=== PATIENT | male | born 1970 | race Caucasian/White ===

== ENCOUNTER 2019-12-21 13:41 | Outpatient (CLI) | payer OTHER, SELFPAY ==
--- NOTE | ~2019-12-21 | CT_ITS ---
EXAMINATION: CT chest abdomen wo con EXAM DATE: 12/21/2019 14:21 INDICATION: Epigastric pain, shortness of breath, right upper quadrant pain. TECHNIQUE: Spiral CT of the chest and abdomen was performed without contrast. Axial, coronal and sa gittal images were reviewed. Coronal maximum intensity pixel images of chest reviewed. The dose-avis gth product (DLP) for this examination was 651.31 mGy-cm. The exposure was tailored according to pat ient size (auto mA exposure control), and iterative reconstruction (ASIR) was used as additional dose reduction technique. There is no prior study for comparison. FINDINGS: CHEST: Pleural-based right lower lobe nodule measuring 3 mm in thickness by 6 mm in diameter. Some s cattered other smaller bilateral noncalcified pulmonary nodules. These appear unchanged compared to p rior study, likely postinfectious granulomas. There are no pleural or pericardial effusions. Trach eobronchial tree is patent. There is no mediastinal, hilar or axillary lymphadenopathy. There is no pneumothorax. Heart normal in size. There is minimal coronary arterial calcification, arterial sclerosis. ABDOMEN: The liver, spleen, adrenal glands and pancreas are unremarkable. Gallbladder is unremarkabl e. No biliary obstruction. There is no nephrolithiasis or hydronephrosis. There is no retroperit martinez lymphadenopathy. The appendix is normal. The stomach and small bowel are unremarkable. There is expected amount of colonic stool. No free intraperitoneal gas. There are no osteoblastic or o steolytic lesions identified. IMPRESSION: 1. No acute chest or abdomen findings. 2. Small noncalcified pulmonary granulomas unchanged. Reviewed, dictated and finalized at location B. TS NUTRITIONIST
== END 2019-12-21 13:42 | disposition home or self-care (01) ==
PROVIDERS: PCP Family Medicine; Visit Provider Family Medicine
DX: R91.8 Other nonspecific abnormal finding of lung field (principal); R10.13 Epigastric pain
CPT/HCPCS: 71250; 74150

== ENCOUNTER 2020-07-31 14:40 | Outpatient (CLI) | payer OTHER, SELFPAY ==
--- NOTE | 2020-08-06 15:59 | WPDPFTINT ---
PFT Interpretation PFT Interpretation: DOS: 07/31/2020 REQUESTING: Dr Wilson REASON FOR TESTING: asthma, shortness of breath PULMONARY FUNCTION TESTS Results are reliable. Spirometry: FEV1 is 74%, mildly decreased. FVC 76%, mildly decreased. Normal FEV1%. DEcreased [id number]% at 54% predicted. After bronchodilator there is a 17% increase in small airways flows. Lung volumes: TLC 84$, normal. RV 88%, normal. Incrased airway resistance. Diffusion: DLCO 81%, normal. Flow volume loop: Normal. IMPRESSION: Mild obstructive ventilatory impairment, more significant in the small airways, without response to bronchodilator. This pattern can be seen in asthma. Nguyen Wilson MD
== END 2020-07-31 14:41 | disposition home or self-care (01) ==
PROVIDERS: PCP Family Medicine; Visit Provider Internal Medicine Critical Care Medicine
DX: J45.909 Unspecified asthma, uncomplicated (principal)
CPT/HCPCS: 94060; 94726; 94729

== ENCOUNTER 2020-08-11 08:28 | Outpatient (CLI) | payer OTHER, SELFPAY ==
--- NOTE | 2020-08-31 21:51 | SLEEP_ITS ---
HOME SLEEP TEST DATE OF STUDY: 08/11/2020 ORDERING PHYSICIAN: Nguyen Wilson MD. REASON FOR STUDY: Restless sleep, headache, excessive daytime sleepiness. HISTORY: This patient is a 49-year-old man, 5 feet 8 inches tall, weighing 200 pounds with a body mass index of 30.4. He has a history of obstructive sleep apnea syndrome with his last CPAP titration on 01/02/2014, with an optimal pressure of 11 cm. He returns at this time with complaints of an increase in symptoms. He wakes up throughout the night and has excessive daytime sleepiness. He frequently awakens from sleep feeling short of breath, occasionally awakens with heartburn, belching, or coughing, frequently has snoring that is loud enough to bother others. He rarely has trouble sleeping with a cold. He occasionally wakes up gasping for breath during the night, occasionally has breathing problems reported to him by others. He does not sweat excessively at night. He occasionally notices his heart pounding or beating irregularly at night. 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 He does not fall asleep involuntarily or while driving. He does not have loss of muscle tone with strong emotion. He occasionally has daytime difficulties due to excessive sleepiness. He is not paralyzed on waking or falling asleep. Rarely has vivid dreamlike scenes upon awakening or falling asleep. He is never afraid to go to sleep. He rarely has nightmares. Frequently, remembers his dreams and frequently has racing thoughts. He constantly has anxiety. He frequently has muscular tension, frequently notices parts of his body jerking, constantly kicks at night and frequently has crawly achy feelings in his legs at night. He occasionally has leg pain at night. He rarely has morning jaw pain, occasionally grinds his teeth during sleep. He rarely is bothered by pain during the day or awakened by pain at night, rarely wakes up feeling stiff in the morning with sore achy muscles or pain in the neck and spine. He has headaches, fatigue, and takes antacids regularly. Bedtime is 10:30 p.m., falling asleep within 15 minutes, waking 4-6 times at night for 45 minutes. During this time, he will toss and turn. He does not take naps. A short nap is not refreshing. He is usually drowsy in the morning for 3 hours or longer. MEDICATIONS: Buspirone, Xanax, Singulair, Symbicort, lansoprazole. MEDICAL COMORBIDITIES: Include anxiety, obstructive sleep apnea syndrome, asthma, anxiety, depression, hyperlipidemia, restless legs syndrome. HABITS: Former smoker. No current alcohol. He has a 16 ounce caffeinated beverage a day. DESCRIPTION OF STUDY: On the [place] Sleepiness Scale, his score is 10. This was conducted as an unattended type 3 portable home sleep test using 4 channel monitoring including respiratory effort channel, snoring channel, oxygen saturation channel, and heart rate channel. The study was scored using [facility] guidelines. His apnea-hypopnea index is 15, had 17 apneas, the majority or 71% of the apneas, 12 apneas were obstructive, 24% or 4 apneas were centrals and 6% of the apneas, 1 apnea was mixed. He had 80 hypopneas, 119 snoring events and desaturated 93 times, spending 1 minute below 88% saturation. His lowest saturation was 86%. Oxygen desaturation index is 12.1. Heart rate ranged from 51 to 100. IMPRESSION: This study shows evidence of at least moderate obstructive sleep apnea syndrome at G47.33 with an apnea-hypopnea index of 15, minimum desaturation to 86% and 119 snoring episodes. Duration of this overnight study was 6 hours 30 minutes. The patient has medical comorbidities including hypertension and anxiety. He should be treated with auto PAP with pressures between 5
== END 2020-08-11 08:29 | disposition home or self-care (01) ==
LOC: ANHCSM 08:28
PROVIDERS: PCP Family Medicine; Visit Provider Internal Medicine Critical Care Medicine
DX: G47.33 Obstructive sleep apnea (adult) (pediatric) (principal); Z99.89 Dependence on other enabling machines and devices
CPT/HCPCS: 95806

== ENCOUNTER 2021-02-03 11:32 | Observation (INO) | payer OTHER, SELFPAY ==
[2021-02-03] VITALS (15 sets, daily range): BP systolic 121–155; BP diastolic 76–93; PULSE 69–94; RESP 14–20; TEMP 36.3–36.9; O2SAT 97–99; BMI 30.2
--- NOTE | ~2021-02-03 | XR_ITS ---
EXAMINATION: XR chest 2V EXAM DATE: 02/03/2021 12:06 INDICATION: Midline chest pain, felt pop and tingling in arm. TECHNIQUE: Frontal and lateral projections of the chest obtained and reviewed. Comparison is made to prior examination from 12/07/2019. FINDINGS: The lungs are clear. There are no pleural effusions. The cardiomediastinal silhouette is within normal limits. There is no pneumothorax suspected. The bones and soft tissues are unremarkab le. IMPRESSION: Unremarkable chest x-ray exam. Reviewed, dictated and finalized at location A.
--- NOTE | 2021-02-03 11:40 | ECG_ITS ---
Measurements Intervals [address] Rate: 92 P: 24 AK: 136 QRS: -33 QRSD: 89 T: 14 QT: 332 QTc: 412 Interpretive Statements SINUS RHYTHM LEFT AXIS DEVIATION DELAYED PRECORDIAL R/S TRANSITION BASELINE ARTIFACT- II, III, AVF BORDERLINE ECG Electronically Signed On 02-03-2021 15:21:32 CDT by Tony Maldonado D.O.
[2021-02-03 11:53] LABS: Basophils Absolute Auto 0.1 K/mm3 (0.0-0.1); Basophils Percent Auto 0.7 % (0.2-1.2); Eosinophils Absolute Auto 0.5 K/mm3 (0-0.3); Eosinophils Percent Auto 6.8 % (0-4.4); Hematocrit 47.6 % (42.0-52.0); Hemoglobin 16.4 g/dL (14.0-18.0); Immature Granulocyte Absolute 0.04 K/mm3 (0.00-0.031); Immature Granulocyte Percent A 0.5 % (0-0.5); Lymphocytes Absolute Auto 2.91 K/mm3 (0.9-3.2); Lymphocytes Percent Auto 39.5 % (18.3-44.2); Mean Corpuscular HGB Conc 34.5 g/dl (32-36); Mean Corpuscular Hemoglobin 31.2 pg (26-34); Mean Corpuscular Volume 90.5 fl (80-100); Mean Platelet Volume 8.9 fl (7.4-10.4); Monocytes Absolute Auto 0.6 K/mm3 (0.1-0.6); Monocytes Percent Auto 8.4 % (2.6-8.5); Neutrophils Absolute Auto 3.2 K/mm3 (1.3-6.7); Neutrophils Percent Auto 44.1 % (45.5-73.1); Platelet Count Result 215 k/mm3 (150-375); Red Blood Count 5.26 M/mm3 (4.6-6.20); Red Cell Distribution Width 12.6 % (11.5-14.5); White Blood Count 7.4 K/mm3 (4.5-10.0)
[2021-02-03] MEDS: ASPIRIN 81 MG CHEWABLE TABLET 324 MG PO (12:01)
[2021-02-03 12:04] LABS: Anion Gap 5 mmol/L (8-16); Blood Urea Nitrogen 11 mg/dL (9-20); Calcium 9.2 mg/dL (8.4-10.2); Carbon Dioxide 29 mmol/L (22-30); Chloride 105 mmol/L (98-107); Estimated CRCL calculation 83 ml/min; Estimated Glomerular Filt Rate > 60; Glucose 147 mg/dL (75-110); INR 0.9; Prothrombin Time 12.8 Seconds (11.1-14.7); Sodium 139 mmol/L (137-145)
[2021-02-03 12:05] LABS: Partial Thromboplastin Time 23.5 SECONDS (22.3-36.8)
[2021-02-03 12:15] LABS: Troponin I < 0.012 ng/mL (0.000-0.034)
[2021-02-03 12:29] LABS: D Dimer 0.27 ug/mL (<0.48)
--- NOTE | 2021-02-03 13:09 | ED.GENADULT ---
HPI - General Adult General Chief complaint: Chest Pain Stated complaint: chest pain Time Seen by Provider: 02/03/21 11:39 Source: patient History of Present Illness HPI narrative: Patient is a 50 y/o male complaining of mid sternal chest pain starting 1 hour ago. He describes his pain as burning and rates it as 10/10. He states that his pain radiates throughout his body. He also had some tingling in his hands. He states that he is supposed to have a stress test in the near future, but it has not be scheduled yet. Related Data Home Medications Medication Instructions Recorded Confirmed alprazolam 0.5 mg PO DAILY PRN 10/12/19 01/29/21 aspirin [Aspir-81] 81 mg PO DAILY 10/12/19 01/29/21 albuterol sulfate [ProAir HFA] 1 inh INHALATION QID PRN 10/15/19 01/29/21 Allergies Allergy/AdvReac Type Severity Reaction Status Date / Time No Known Allergies Allergy Verified 02/03/21 11:40 Review of Systems Constitutional: Constitutional: Denies chills, Denies fever(s), Denies headache(s) and Denies weakness Eyes: Eyes: Denies blurry vision ENT: Denies headache(s) and Denies neck pain Cardiovascular: Cardiovascular: Reports chest pain and Denies dyspnea Respiratory: Respiratory: Denies cough and Denies dyspnea Gastrointestinal: Gastrointestinal: Denies abdominal pain, Denies diarrhea, Denies nausea and Denies vomiting Genitourinary: Genitourinary: Denies hematuria and Denies dysuria Musculoskeletal: Musculoskeletal: Denies back pain and Denies neck pain Neurologic: Denies headache(s), Reports tingling and Denies weakness [facility] Past Medical History Medical History Anxiety Asthma BMI 30.0-30.9,adult Chest pain Depression Hyperlipidemia Hypertriglyceridemia, essential SONYA (obstructive sleep apnea) SONYA on CPAP Restless leg syndrome Unspecified asthma Family History Family History Mother Family history of diabetes mellitus in first degree relative Family history of thyroid disease Diabetes mellitus Hypertension Grandparent Family history of coronary artery disease Social History Social History Smoking packs per day: 1 Smoking cigarettes per day: 20.0 Years smoked: 30 Smoking pack-years: 30.00 Smoking status: Former smoker Alcohol intake: never Exam Const: General: no acute distress and well developed Orientation/consciousness: oriented to person, oriented to place, oriented to time and patient oriented x3 HENMT: Head: normocephalic Ears: external ears normal General nose exam: Normal external nose present Eyes: General: appearance normal, both eyes and all related structures Conjunctivae: conjunctivae normal Neck: Neck: normal visual inspection and full ROM Chest: Chest palpation & inspection: normal inspection of the chest and no tenderness Resp: Effort & Inspection: normal respiratory effort Auscultation: clear to auscultation bilaterally Cardio: Rate: regular rate Rhythm: regular rhythm GI: GI Palp: No abdominal tenderness and Yes Soft to palpation Skin: General skin exam: normal color and turgor normal Neuro: General: oriented to person, oriented to place, oriented to time and patient oriented x3 Cognition (Neuro): normal cognition Extrem: General: normal to inspection, full ROM and no pedal edema Psych: Appearance: grossly normal Mental Status: mental status grossly normal Affect: normal affect Course Consultations Consultation #1: Discussed with Dr. De Oliveira, who recommends admitting to hospitalist and he will consult. Date: 02/03/21 Time: 14:54 Consultation #2: Discussed with DERRICK Davis, who agrees to admit. Date: 02/03/21 Time: 15:07 Vital Signs Vital signs: Vital Signs Temperature 36.9 C 02/03/21 11:35 Pulse Rate 94 02/03/21 11:35 Respiratory Rate 18 02/03/21 11:35 Blood Pressure 155/89 H 02/03
[2021-02-03 15:13] LABS: Troponin I < 0.012 ng/mL (0.000-0.034)
--- NOTE | 2021-02-03 16:13 | ADMGEN ---
This patient, Glen Demarco, was admitted to IMU Room 207-01. Patient/family oriented to hospital policies and general routines including ID bracelet, bed and alarms, visiting hours, pain management, procedures, bathroom and other care routines, personal items, smoking policy, room service/diet, and visiting hours. Information on how to activate the Rapid Response Team has been discussed. Patient/Family are encouraged to report perceived risks to care and to ask questions if they do not understand what they are told or what they should do.
--- NOTE | 2021-02-03 17:14 | PCRCNOTE ---
Pt does not want to wear our CPAP. He is going to have someone bring in his home unit.
[2021-02-03 18:04] LABS: Troponin I < 0.012 ng/mL (0.000-0.034)
--- NOTE | 2021-02-03 21:06 | PM.IMHP ---
H&P: HPI History of Present Illness Date/Time: 02/03/21 21:06 Chief Complaint: chest pain Narrative: Patient is a 50 y/o male complaining of mid sternal chest pain starting 1 hour ago. He describes his pain as burning and rates it as 10/10. He states that his pain radiates throughout his body. He also had some tingling in his hands. He states that he is supposed to have a stress test in the near future, but it has not be scheduled yet. 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 but he has been having some intermittent chest pains similar in nature over the past few days. no diaphoreiss, nausea, vomiting, sob assocaited with the chest pain. Review of Systems Constitutional: Constitutional: Denies excessive sweating, Denies fatigue, Denies headache(s) and Denies weakness ENT: Denies headache(s), Denies lip swelling, Denies epistaxis, Denies nasal congestion, Denies nasal discharge and Denies neck pain Cardiovascular: Cardiovascular: Reports chest pain, Denies diaphoresis, Denies lightheadedness, Denies palpitations, Denies dyspnea and Denies dyspnea on exertion Respiratory: Respiratory: Denies cough, Denies dyspnea and Denies dyspnea on exertion Gastrointestinal: Gastrointestinal: Denies abdominal pain, Denies constipation, Denies diarrhea, Denies nausea and Denies vomiting Genitourinary: Genitourinary: Denies dysuria, Denies flank pain and Denies nocturia Musculoskeletal: Musculoskeletal: Denies abnormal gait, Denies back pain and Denies neck pain Integumentary/Breasts: Skin/Breast: Denies dry skin and Denies rash Neurologic: Denies Abnormal speech present, Denies abnormal gait, Denies behavioral changes, Denies confusion, Denies headache(s) and Denies weakness Psychiatric: Psychiatric: Denies anxiety, Denies behavioral changes and Denies confusion Endocrine: Endocrine: Denies cold intolerance, Denies excessive sweating, Denies fatigue, Denies heat intolerance and Denies palpitations Hematologic/Lymphatic: Hematologic/Lymphatic: Denies easy bleeding and Denies lymphadenopathy Allergic/Immunologic: Allergic/Immunologic: Denies urticaria and Denies lip swelling PMFSH Past Medical History Medical History Anxiety Asthma BMI 30.0-30.9,adult Chest pain Depression Hyperlipidemia Hypertriglyceridemia, essential SONYA (obstructive sleep apnea) SONYA on CPAP Restless leg syndrome Unspecified asthma Family History Family History Mother Family history of diabetes mellitus in first degree relative Family history of thyroid disease Diabetes mellitus Hypertension Grandparent Family history of coronary artery disease Social History Social History Smoking packs per day: 1 Smoking cigarettes per day: 20.0 Years smoked: 30 Smoking pack-years: 30.00 Smoking status: Former smoker Tobacco type: cigarettes Additional smoking assessment comments: 1 ppd for 30 yrs, quit 2018 Alcohol intake: never Substance use: never Spiritual care concerns: No Meds Home Medications and Allergies Home Medications Medication Instructions Recorded Confirmed Type alprazolam 0.5 mg PO DAILY PRN 10/12/19 02/03/21 History albuterol sulfate [ProAir HFA] 1 inh INHALATION QID PRN 10/15/19 02/03/21 History buspirone 15 mg tablet 15 mg PO BID #60 tablet 06/16/20 02/03/21 Rx lansoprazole 30 mg capsule,delayed 30 mg PO DAILY #30 cap 11/24/20 02/03/21 Rx release ezetimibe 10 mg tablet 10 mg PO DAILY #30 tablet 12/18/20 02/03/21 Rx syringe with needle 3 mL 21 gauge #50 ea 01/29/21 02/03/21 Rx x 1 1/2 testosterone cypionate 200 mg/mL 200 mg IM .Every other Week #3 ml 02/02/21 02/03/21 Rx intramuscular oil escitalopram oxalate 10 mg PO DAILY 02/03/21 02/03/21 History icosapent ethyl [Vascepa] 2 g PO BID 02/03/21 02/03/21 History montelukast 10 mg PO DAILY PRN
[2021-02-03] MEDS: OMEGA 3 POLYUNSAT FATTY ACIDS 1 GM CAP 2 GM PO (22:01)
[2021-02-03] MEDS: busPIRone HCL 5 MG TABLET 15 MG PO (22:03)
[2021-02-03] MEDS: ENOXAPARIN 40 MG/0.4 ML SYRINGE SUB-Q (22:03)
[2021-02-04] VITALS (7 sets, daily range): BP systolic 108–129; BP diastolic 73–75; PULSE 68–77; RESP 20–22; TEMP 36.2–37; O2SAT 96–98
--- NOTE | 2021-02-04 | EST_ITS ---
Patient Info Name: Glen Demarco Age: 50 years : 1970 Gender: Male Ht: 69 in Wt: 210 lbs BSA: 2.18 m2 HR: 77 bpm BP: 118 / 78 mmHg Exam Date: 02/04/2021 11:52 AM Exam Location: [facility] Patient Status: Inpatient Admit Date: 02/03/2021 Staff Ordering Physician: Adriano Meneses MD Gas Leak Tester: Estela Alvarado RDCS Attending Provider: HATTIE Exercise Technologist: Vivek Farmer RDCS, RT Exercise Physician: Obed De Oliveira MD Exam Type: CA stress echo Study Info Indications R07.9 - Chest pain, unspecified Treadmill exercise stress echocardiogram is performed. Summary 1. Post-stress LV systolic function hyperdynamic with reduction LV cavity size, increase in contractility without wall motion abnormalities with ejection fraction of 80%. 2. Resting left ventricular chamber size, wall thickness, systolic function are normal with no regional wall motion abnormalities with an estimated ejection fraction of 60-65%. 3. Occasional stress-induced PVCs. In recovery, intermittent marked sinus arrhythmia noted. 4. No ST/T wave changes that meet strict diagnostic criteria for myocardial ischemia noted with exercise. 5. Maximal treadmill stress EKG study achieving 97% of age predicted max heart rate and 10.3 METs at peak exercise. 6. Good exercise capacity for age. 7. No stress-induced chest pain. 8. Flores treadmill score +8 indicating low risk for adverse cardiovascular events over the next 5 years. 9. No EKG or echocardiographic evidence for myocardial ischemia. Stress Echo Findings Left Ventricle Post-stress LV systolic function hyperdynamic with reduction LV cavity size, increase in contractility without wall motion abnormalities with ejection fraction of 80%. Left Ventricle Resting left ventricular chamber size, wall thickness, systolic function are normal with no regional wall motion abnormalities with an estimated ejection fraction of 60-65%. Ventricles Name Value Normal LV Fractional Shortening/Ejection Fraction 2D/MM Visually Estimated EF 75 % 52-72 Protocol: Issac Stress ECG Details Stage: REST Duration (min): 0 min : 11 sec Speed (mph): 0.0 Grade (%): 0 HR (bpm): 73 SBP (mmHg): --- DBP (mmHg): --- METS: --- Stage: REST Duration (min): 8 min : 23 sec Speed (mph): 0.0 Grade (%): 0 HR (bpm): 85 SBP (mmHg): 118 DBP (mmHg): 78 METS: --- Stage: REST Duration (min): 11 min : 23 sec Speed (mph): 0.0 Grade (%): 0 HR (bpm): 83 SBP (mmHg): 118 DBP (mmHg): 78 METS: --- Stage: STAGE 1 Duration (min): 1 min : 0 sec Speed (mph): 1.7 Grade (%): 10 HR (bpm): 108 SBP (mmHg): 118 DBP (mmHg): 78 METS: --- Stage: STAGE 1 Duration (min): 2 min : 0 sec Speed (mph): 1.7 Grade (%): 10 HR (bpm): 118 SBP (mmHg): 118 DBP (mmHg): 78 METS: --- Stage: STAGE 1 Duration (min): 3 min : 0 sec Speed (mph):
[2021-02-04 05:11] LABS: Basophils Absolute Auto 0.1 K/mm3 (0.0-0.1); Basophils Percent Auto 0.5 % (0.2-1.2); Eosinophils Absolute Auto 0.5 K/mm3 (0-0.3); Eosinophils Percent Auto 5.5 % (0-4.4); Hematocrit 46.5 % (42.0-52.0); Hemoglobin 15.9 g/dL (14.0-18.0); Immature Granulocyte Absolute 0.04 K/mm3 (0.00-0.031); Immature Granulocyte Percent A 0.4 % (0-0.5); Lymphocytes Absolute Auto 3.42 K/mm3 (0.9-3.2); Lymphocytes Percent Auto 36.9 % (18.3-44.2); Mean Corpuscular HGB Conc 34.2 g/dl (32-36); Mean Corpuscular Hemoglobin 31.2 pg (26-34); Mean Corpuscular Volume 91.4 fl (80-100); Mean Platelet Volume 9.1 fl (7.4-10.4); Monocytes Absolute Auto 0.8 K/mm3 (0.1-0.6); Monocytes Percent Auto 8.1 % (2.6-8.5); Neutrophils Absolute Auto 4.5 K/mm3 (1.3-6.7); Neutrophils Percent Auto 48.6 % (45.5-73.1); Platelet Count Result 211 k/mm3 (150-375); Red Blood Count 5.09 M/mm3 (4.6-6.20); Red Cell Distribution Width 12.5 % (11.5-14.5); White Blood Count 9.3 K/mm3 (4.5-10.0)
[2021-02-04 05:21] LABS: Anion Gap 4 mmol/L (8-16); Blood Urea Nitrogen 10 mg/dL (9-20); Calcium 8.6 mg/dL (8.4-10.2); Carbon Dioxide 32 mmol/L (22-30); Chloride 105 mmol/L (98-107); Cholesterol 257 mg/dL (0-200); Estimated CRCL calculation 75 ml/min; Estimated Glomerular Filt Rate > 60; Glucose 98 mg/dL (75-110); HDL Direct 28 mg/dL; Potassium 3.7 mmol/L (3.4-5.0); Sodium 141 mmol/L (137-145); Triglycerides 233 mg/dL (<150)
[2021-02-04 05:31] LABS: LDL Cholesterol Direct 191 mg/dL
[2021-02-04] MEDS: EZETIMIBE 10 MG TABLET PO (08:41)
[2021-02-04] MEDS: ASPIRIN 81 MG ENTERIC TABLET PO (08:41)
[2021-02-04] MEDS: OMEGA 3 POLYUNSAT FATTY ACIDS 1 GM CAP 2 GM PO (08:41)
[2021-02-04] MEDS: busPIRone HCL 5 MG TABLET 15 MG PO (08:41)
[2021-02-04] MEDS: PANTOPRAZOLE 40 MG TABLET PO (08:41)
[2021-02-04] MEDS: ESCITALOPRAM OXALATE 10 MG TABLET PO (08:41)
--- NOTE | 2021-02-04 09:41 | PM.CNCAR ---
Assessment and Plan Additional Plan 50-year-old man with: Episode of chest pain occurring at work yesterday. The symptoms have been occurring intermittently for about a year. They are not typically exertional in nature but are creating concern. His troponins and ECGs showed no evidence of acute coronary syndrome. I am going to recommend an order a stress echocardiogram for further evaluation of this this morning. Adriano Meneses MD [facility] History of Present Illness History of Present Illness Consult date/time: Date of service: 02/04/21 09:41 Consult reason: chest pain Reason For Visit: chest pain Narrative: This is a 50-year-old man with no previous history of cardiac problems who was admitted after being seen in the emergency room yesterday with chest pain. 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 He states that he was seated at his desk and suddenly noticed the onset of something in the way of a sudden jolt like sensation in the center of his chest that created him to be greatly concerned about his health. He states this symptom was then followed by some dull aching or pressure like sensation that lasted for possibly a few minutes and then subsided. He came to the emergency department for evaluation in the ED his electrocardiogram looked unremarkable and his biomarkers were negative. He was admitted to the IMU for observation overnight. The patient states that he has been having symptoms of this sort of pain very mildly intermittently for almost 1 year. He has not brought these symptoms to his physician's attention. They are not occurring in a typical exertional fashion appear to be largely unpredictable. Overnight he has remained asymptomatic and feels overall essentially well. He offers no other cardiovascular complaints he denies any sense of palpitations orthopnea PND or accumulating edema. He has never had a syncopal episode. He states that he has had some episodes of intermittent chest pain in the past his PCP had him undergo outpatient stress test 5 or 6 years ago that he says was negative. He does report a history of a significant anxiety disorder and was concerned that this may be playing a role in the symptoms as well. In any event in this setting I am seeing him in consultation this morning. He does have a history of hypertriglyceridemia he is not known to have hypertension or diabetes. He states that his paternal grandfather of a myocardial infarction at a younger age no history of coronary disease in primary first-degree relatives. Review of Systems Constitutional: Constitutional: Reports no additional constitutional complaints Eyes: Eyes: Reports no additional eye complaints ENT: Reports system reviewed and no additional complaints, except as documented Cardiovascular: Cardiovascular: Reports as per HPI Respiratory: Respiratory: Reports no additional respiratory complaints Gastrointestinal: Gastrointestinal: Reports no additional gastrointestinal complaints Musculoskeletal: Musculoskeletal: Reports no additional musculoskeletal complaints Integumentary/Breasts: Skin/Breast: Reports system reviewed and no additional complaints, except as docu Neurologic: Reports system reviewed and no additional complaints, except as documented Psychiatric: Psychiatric: Reports as per HPI and Reports anxiety Endocrine: Endocrine: Reports no additional endocrine complaints Hematologic/Lymphatic: Hematologic/Lymphatic: Reports no additional hematologic/lymphatic complaints Allergic/Immunologic: Allergic/Immunologic: Reports no additional allergic/immunologic complaints PMFSH Past Medical History Medical History Anxiety Asthma BMI 30.0-30.9,adult Chest pain Depression Hyperlipidemia Hypertriglyceridemia, essential SONYA (obstructive sleep apnea) SONYA on CPAP Restless leg syndrome Unspecified asthma Family History Family Hist
--- NOTE | 2021-02-04 13:04 | PM.DS ---
DS: Admitting Diagnosis Admitting Diagnosis Admitting Diagnosis: Chest pain DS: Summary Hospital Course Reason for hospitalization: Chief Complaint: chest pain Narrative: Patient is a 50 y/o male complaining of mid sternal chest pain starting 1 hour ago. He describes his pain as burning and rates it as 10/10. He states that his pain radiates throughout his body. He also had some tingling in his hands. He states that he is supposed to have a stress test in the near future, but it has not be scheduled yet. 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 but he has been having some intermittent chest pains similar in nature over the past few days. no diaphoreiss, nausea, vomiting, sob assocaited with the chest pain. Hospital Course: Patient with chest pain, his 3 sets of cardiac enzymes were negative and there was not acute changes on his EKG, patient was seen by oxygen equipment preparer and had stress ECHO which was normal without any ischemic event, patient is clinically stable, will discharge patient home, patient will follow up with his primary care provider as soon as possible, Patient is instructed if any symptoms redevelop to go to nearest ER. Status at Discharge Functional status at discharge: independent ambulation Overall status at discharge: patient is back to baseline Time Spent with Patient Time attestation: Total time spent providing and/or coordinating discharge services: Patient was seen and examined at the time of the discharge Condition at discharge is stable Code status: Full code. Time spent preparing discharge summary, discharge medications, discussing discharge planning with caseworker protective services and patient is 35 minutes. Time spent: Greater than 30 minutes Exam Narrative: Exam Narrative: Moderately obese Patient is comfortable, NAD HEENT: eyes are clear and none icteric LUNGS:CTA HEART: RR S1S2 ABD: BS+, Soft and nontender Lower extremities: no edema SKIN: nonjaundiced Neuro: grossly intact. DS: Data Data Completed and Pending Labs on day of discharge: Labs from last 24 hours 02/04/21 02/04/21 02/03/21 04:39 04:39 17:36 WBC 9.3 RBC 5.09 Hgb 15.9 Hct 46.5 MCV 91.4 MCH 31.2 MCHC 34.2 RDW 12.5 Plt Count 211 MPV 9.1 Immature Gran % (Auto) 0.4 Neut % (Auto) 48.6 Lymph % (Auto) 36.9 [place] % (Auto) 8.1 Eos % (Auto) 5.5 H Baso % (Auto) 0.5 Lymph # (Auto) 3.42 H [place] # (Auto) 0.8 H Eos # (Auto) 0.5 H Baso # (Auto) 0.1 Abs Immat Gran (auto) 0.04 H Absolute Neuts (auto) 4.5 Absolute Nucleated RBC 0.0 Nucleated RBC % 0.0 Sodium 141 Potassium 3.7 Chloride 105 Carbon Dioxide 32 H Anion Gap 4 L BUN 10 Creatinine 1.20 Estim Creat Clear Calc 75 Estimated GFR > 60 Glucose 98 Calcium 8.6 Troponin I < 0.012 Triglycerides 233 H Cholesterol 257 H LDL Cholesterol Direct 191 HDL Direct 28 02/03/21 14:41 WBC RBC Hgb Hct MCV MCH MCHC RDW Plt Count MPV Immature Gran % (Auto) Neut % (Auto) Lymph % (Auto) [place] % (Auto) Eos % (Auto) Baso % (Auto) Lymph # (Auto) [place] # (Auto) Eos # (Auto) Baso # (Auto) Abs Immat Gran (auto) Absolute Neuts (auto) Absolute Nucleated RBC Nucleated RBC % Sodium Potassium Chloride Carbon Dioxide Anion Gap BUN Creatinine Estim Creat Clear Calc Estimated GFR Glucose Calcium Troponin I < 0.012 Triglycerides Cholesterol LDL Cholesterol Direct HDL Direct Discharge Plan Discharge Attending physician on discharge: Emerson Perez Consulting providers: Obed De Oliveira Discharging Clinician: Emerson Perez Patient Disposition: Home, Self-Care Activity: as tolerated Diet: heart healthy Discharge Instructions: Patient with chest pain, his 3 sets of cardiac enzymes were negative and there was not acute changes on his EKG, patient was seen by oxygen equipment preparer and had stress ECHO which was norm
== END 2021-02-04 13:52 | disposition home or self-care (01) ==
LOC: ANHED 11:49 → ANHIMU 15:25
PROVIDERS: Internal Medicine; Admitting Provider Family Medicine; Emergency Provider Emergency Medicine; PCP Family Medicine; Visit Provider Family Medicine
DX: R07.89 Other chest pain (principal); G47.33 Obstructive sleep apnea (adult) (pediatric); Z87.891 Personal history of nicotine dependence; E78.5 Hyperlipidemia, unspecified; F41.9 Anxiety disorder, unspecified; J45.909 Unspecified asthma, uncomplicated; K21.9 Gastro-esophageal reflux disease without esophagitis
CPT/HCPCS: 36415; 71046; 80048; 80061; 84484; 85025; 85380; 85610; 85730; 93005; 93351; 96372; 99285; A9270; G0378; J1650

== ENCOUNTER 2021-07-02 07:25 | Outpatient (CLI) | payer OTHER, SELFPAY ==
--- NOTE | ~2021-07-02 | MR_ITS ---
EXAMINATION: MR hand LT wo/w con DATE: 07/02/2021 08:44 INDICATION: Rheumatoid factor positive TECHNIQUE: Magnetic resonance imaging (MRI) of the left hand was performed without and with 17 mL [place] intravenous contrast. Sequences included axial T1-weighted FSE, axial T2-weighted FS FSE, cor onal T1-weighted FSE, coronal T2-weighted FS FSE, sagittal T1-weighted FSE and sagittal T2-weighted F S FSE. Precontrast axial T1-weighted FS FSE and post contrast axial and coronal T1-weighted FS FSE we re also obtained. COMPARISON: None. FINDINGS: Bone alignment is normal. No fracture or pathologic marrow replacing process. Nonuniform joint space narrowing consistent with mild osteoarthritis at the distal radioulnar joint. Focal cortical irregula rity with underlying marrow edema and enhancement along the volar aspect of the proximal articular noble rface of the lunate. Remaining joint spaces appear relatively preserved with joint effusions, synovit is or other bone lesions suspicious for erosions. The flexor and extensor tendons of the hand appear normal with no tenosynovitis. 5 x 7 x 3 ganglion cyst positioned along the volar margin of the ulnar styloid process. Intrinsic musculature of the hand appears normal. Other abnormally enhancing lesions identified. IMPRESSION: 1. Mild osteoarthritis at the distal radioulnar joint. 2. Small cortical irregularity with underlying edema and enhancement along the volar aspect of the pr oximal articular surface of the lunate. Differential would include small erosion such as in the setti ng of gout, rheumatoid arthritis or other inflammatory arthritis, degenerative cystic change either r elated to osteoarthritis or potentially ulnocarpal impaction or less likely osteonecrosis. No evident joint space narrowing, synovitis or erosions at the metacarpophalangeal joints to more specifically suggest rheumatoid arthritis. Consider dedicated left wrist radiographs for higher resolution assessm ent of the cortices and joint spaces. Reviewed, dictated and finalized at location A. IMPRESSION: 1. Mild osteoarthritis at the distal radioulnar joint. 2. Small cortical irregularity with underlying edema and enhancement along the volar aspect of the proximal articular surface of the lunate. Differential woul d include small erosion such as in the setting of gout, rheumatoid arthritis or other inflammatory arthritis, degenerative cystic change either related to ost eoarthritis or potentially ulnocarpal impaction or less likely osteonecrosis. N o evident joint space narrowing, synovitis or erosions at the metacarpophalange al joints to more specifically suggest rheumatoid arthritis. Consider dedicated left wrist radiographs for higher resolution assessment of the cortices and rodrick int spaces.
[2021-07-02 07:49] LABS: Estimated Glomerular Filt Rate > 60
== END 2021-07-02 07:26 | disposition home or self-care (01) ==
LOC: ANHIMG 07:28
PROVIDERS: PCP Family Medicine
DX: R79.89 Other specified abnormal findings of blood chemistry (principal); M19.042 Primary osteoarthritis, left hand
CPT/HCPCS: 73220; A9577

== ENCOUNTER 2022-03-31 08:17 | Outpatient (CLI) | payer OTHER, SELFPAY ==
--- NOTE | ~2022-03-31 | CT_ITS ---
EXAMINATION: CT lung screening DATE: 03/31/2022 08:37 INDICATION: Personal history of nicotine dependence, prior smoker with 30 pack year history TECHNIQUE: Computed tomography (CT) of the chest was performed without intravenous contrast. The dose -length product (DLP) was 140.02 mGy-cm. Automated exposure control and iterative reconstruction tech [employer] Alert were employed. COMPARISON: 12/21/2019 FINDINGS: There is mild emphysema. Scattered stable pulmonary nodules measure up to 4 mm. There is a 4 mm subpleural nodule right lower lobe. The lungs are free of focal airspace opacities. There is no pleural effusion or pneumothorax. There is mild emphysema. No pathologically enlarged thoracic lymph nodes are identified. The heart size is normal. There is mild thoracic spondylosis. Stones are presen t in the nondistended gallbladder. IMPRESSION: 1. Lung-RADS category 2: Benign appearance or behavior. Continue annual screening with noncontrast lo w-dose chest CT in 12 months. Reviewed, dictated and finalized at location A. IMPRESSION: 1. Lung-RADS category 2: Benign appearance or behavior. Continue annual screeni ng with noncontrast low-dose chest CT in 12 months.
== END 2022-03-31 08:18 | disposition home or self-care (01) ==
PROVIDERS: PCP Family Medicine; Visit Provider Nurse Practitioner Family
DX: Z87.891 Personal history of nicotine dependence (principal)
CPT/HCPCS: 71271

== ENCOUNTER 2022-04-29 15:34 | Outpatient (CLI) | payer OTHER, SELFPAY ==
--- NOTE | ~2022-04-29 | XR_ITS ---
EXAMINATION: XR chest 2V 04/29/2022 15:49 INDICATION: Cough. History of asthma. PROCEDURE: 2 view chest COMPARISON: 02/03/2021 FINDINGS: No focal pneumonia or edema. Minimal left basilar atelectasis. The cardiomediastinal silhou ette is within normal limits. There are no pleural effusions. There is no pneumothorax suspected. IMPRESSION: 1: NO ACUTE CARDIOPULMONARY DISEASE. Reviewed, dictated and finalized at location B.
== END 2022-04-29 15:35 | disposition home or self-care (01) ==
PROVIDERS: PCP Family Medicine; Visit Provider Nurse Practitioner Family
DX: R05.9 Cough, unspecified (principal)
CPT/HCPCS: 71046

== ENCOUNTER → 2022-09-24 14:50 | Outpatient (CLI) | payer OTHER, SELFPAY ==
--- NOTE | ~2022-09-24 | US_ITS ---
EXAMINATION:US venous doppler LE BI INDICATION:Leg swelling TECHNIQUE: Multiple grayscale, color flow and Doppler images of the right and left lower extremity de ep venous systems were obtained and reviewed. COMPARISON:No prior studies for comparison. FINDINGS: The common femoral, superficial femoral and popliteal veins demonstrate normal respiratory variation, augmentation and compressibility. Color flow is also seen within the posterior tibial, pe roneal, greater saphenous and profunda veins. There is a Shields's cyst in the left popliteal fossa trudi suring 1.7 x 1.4 x 1.5 cm. IMPRESSION: 1: No lower extremity deep venous thrombosis. Reviewed, dictated and finalized at location A.
== END ==
PROVIDERS: PCP Family Medicine; Visit Provider Family Medicine
DX: M79.89 Other specified soft tissue disorders (principal)
CPT/HCPCS: 93970

== ENCOUNTER 2022-09-26 07:51 | Outpatient (CLI) | payer OTHER, SELFPAY ==
--- NOTE | ~2022-09-26 | MR_ITS ---
EXAMINATION: MR cervical spine wo con DATE: 09/26/2022 08:30 INDICATION: Other spondylosis with radiculopathy, cervical region. Neck pain. TECHNIQUE: Magnetic resonance imaging (MRI) of the cervical spine was performed without intravenous c ontrast. Sequences included sagittal T2-weighted FSE, sagittal T2-weighted FS FSE, sagittal T1-weight ed FSE, axial MERGE, and axial T2-weighted FSE. COMPARISON: None FINDINGS: Bone alignment is normal. Vertebral body heights are normal. There is mildly decreased disc height at C3-C4 and C4-C5, severely decreased disc height at C5-C6, and moderately decreased disc he ight at C6-C7. The spinal cord signal intensity is normal. The following disc levels are specifically discussed: C2-C3: The disc does not extend beyond the endplate margin. There is no uncovertebral joint osteoarth ritis. There is no facet joint osteoarthritis. There is no neural foraminal stenosis. There is no andrew tral canal stenosis. C3-C4: The disc is bulging. There is mild bilateral uncovertebral joint osteoarthritis. There is mild bilateral facet joint osteoarthritis. There is mild bilateral neural foraminal stenosis. There is mi ld central canal stenosis with ventral indentation of the spinal cord. C4-C5: The disc is bulging. There is mild bilateral uncovertebral joint osteoarthritis. There is mild bilateral facet joint osteoarthritis. There is mild bilateral neural foraminal stenosis. There is mi ld central canal stenosis with ventral indentation of the spinal cord. C5-C6: The disc is bulging. There is severe bilateral uncovertebral joint osteoarthritis. There is no facet joint osteoarthritis. There is moderate bilateral neural foraminal stenosis. There is mild andrew tral canal stenosis with ventral indentation of the spinal cord. C6-C7: The disc is bulging. There is severe bilateral uncovertebral joint osteoarthritis. There is mi ld bilateral facet joint osteoarthritis. There is moderate bilateral neural foraminal stenosis. There is mild central canal stenosis with ventral indentation of the spinal cord. C7-T1: The disc does not extend beyond the endplate margin. There is mild left uncovertebral joint os teoarthritis. There is mild bilateral facet joint osteoarthritis. There is no neural foraminal stenos is. There is no central canal stenosis. IMPRESSION: 1. Severe cervical spondylosis. Reviewed, dictated and finalized at location A. CONTROL WORKER
== END 2022-09-26 07:52 | disposition home or self-care (01) ==
PROVIDERS: PCP Family Medicine; Visit Provider Neurological Surgery
DX: M47.22 Other spondylosis with radiculopathy, cervical region (principal)
CPT/HCPCS: 72141

== ENCOUNTER 2022-10-26 07:33 | Outpatient (CLI) | payer OTHER, SELFPAY ==
--- NOTE | 2022-10-26 | ECG_ITS ---
Measurements Intervals [place] Rate: 67 P: 49 SD: 144 QRS: 80 QRSD: 86 T: 63 QT: 386 QTc: 409 Interpretive Statements SINUS RHYTHM COMPARED TO ECG 02/03/2021 11:37:44 NO SIGNIFICANT CHANGES Electronically Signed On 10-26-2022 15:30:39 PERFUME MAKER by Bart Gan M.D.
--- NOTE | ~2022-10-26 | XR_ITS ---
EXAMINATION: XR chest 2V 10/26/2022 07:54 INDICATION: Personal history of tobacco dependence. PROCEDURE: 2 view chest COMPARISON: Comparison to multiple prior studies sequentially, with oldest reviewed study dated 01/2015. FINDINGS: The lungs are clear. The cardiomediastinal silhouette is within normal limits. There are no pleural effusions. There is no pneumothorax suspected. IMPRESSION: 1: NO ACUTE CARDIOPULMONARY DISEASE. Reviewed, dictated and finalized at location A. RONMENTAL PROGRAM MANAGER
== END 2022-10-26 07:34 | disposition home or self-care (01) ==
PROVIDERS: PCP Family Medicine; Visit Provider Neurological Surgery
DX: Z01.810 Encounter for preprocedural cardiovascular examination (principal); Z01.811 Encounter for preprocedural respiratory examination
CPT/HCPCS: 71046; 93005

== ENCOUNTER 2022-11-19 08:51 | Outpatient (CLI) | payer OTHER, SELFPAY ==
--- NOTE | 2022-11-19 09:06 | ECG_ITS ---
Measurements Intervals [place] Rate: 60 P: 31 VT: 138 QRS: 74 QRSD: 87 T: 34 QT: 411 QTc: 412 Interpretive Statements SINUS RHYTHM NORMAL ELECTROCARDIOGRAM COMPARED TO ECG 10/26/2022 08:05:23 NO SIGNIFICANT CHANGES Electronically Signed On 11-19-2022 14:53:14 FIELD CROPS HARVEST MACHINE OPERATOR by Adriano Meneses M.D.
== END 2022-11-19 08:52 | disposition home or self-care (01) ==
PROVIDERS: PCP Family Medicine; Visit Provider Nurse Practitioner Family
DX: F41.9 Anxiety disorder, unspecified (principal)
CPT/HCPCS: 93005

== ENCOUNTER 2023-01-03 07:59 | Outpatient (CLI) | payer OTHER, SELFPAY ==
--- NOTE | ~2023-01-03 | XR_ITS ---
Cervical Spine: AP and lateral views Clinical History: Status post fusion Findings: The normal lordotic curve is maintained. No acute fracture or sublocation seen. There is an terior fusion from C4 through C7, with disc fusion devices at the relevant disc spaces. There is mini mal degenerative disc change at C2-C3 and C3-C4. Pre-vertebral soft tissues are unremarkable. Impression: Anterior fusion from C4 to C7, as detailed above. No other significant findings. Reviewed, dictated and finalized at location M. CIATE PROFESSOR OF HISTORY Impression: Anterior fusion from C4 to C7, as detailed above. No other significant findings.
== END 2023-01-03 08:00 | disposition home or self-care (01) ==
LOC: ANHIMG 08:01
PROVIDERS: PCP Family Medicine; Visit Provider Neurological Surgery
DX: Z98.1 Arthrodesis status (principal)
CPT/HCPCS: 72040

== ENCOUNTER 2023-02-02 07:01 | Outpatient (CLI) | payer OTHER, SELFPAY ==
--- NOTE | ~2023-02-02 | XR_ITS ---
Cervical Spine: AP, lateral, open-mouth views Clinical History: Postoperative COMPARISON: 01/03/2023 Findings: Anterior fusion from C4 to C7 is unchanged from prior exam, anterior fusion hardware and in terbody fusion devices at the relevant levels. There is moderate degenerative disc change at C7-T1. T here is uncovertebral degenerative change at C4-C5, C5-C6, and C6-C7. Pre-vertebral soft tissues are unremarkable. Impression: Stable anterior fusion from C4 to C7. Underlying mild degenerative changes, as detailed above. Reviewed, dictated and finalized at location M. Impression: Stable anterior fusion from C4 to C7. Underlying mild degenerative changes, as detailed above.
== END 2023-02-02 07:02 | disposition home or self-care (01) ==
PROVIDERS: PCP Family Medicine; Visit Provider Neurological Surgery
DX: Z98.1 Arthrodesis status (principal); M50.30 Other cervical disc degeneration, unspecified cervical region
CPT/HCPCS: 72040

== ENCOUNTER 2023-04-01 09:34 | Outpatient (CLI) | payer OTHER, SELFPAY ==
--- NOTE | ~2023-04-01 | XR_ITS ---
XR_CERV2-3V_CR 04/01/2023 09:58 Indication: Status post anterior cervical discectomy and fusion Procedure: 2 views of the cervical spine Comparison: Comparison to multiple prior studies sequentially, with oldest reviewed study dated 01/03. Findings: Stable alignment of cervical spine status post anterior cervical fusion at C4-7. There are interbody devices with stable position at these levels. No fracture, subluxation or subluxation. Surg ical hardware is intact. No prevertebral soft tissue abnormality. There is mild multilevel uncinate h ypertrophy. Lung apices are normal. Impression: 1: Stable appearance to cervical spine status post anterior cervical fusion with discectomy at C4-7. Reviewed, dictated and finalized at location B. Impression: 1: Stable appearance to cervical spine status post anterior cervical fusion wit h discectomy at C4-7.
--- NOTE | ~2023-04-01 | CT_ITS ---
EXAMINATION: CT lung screening DATE: 04/01/2023 10:02 INDICATION: Lung cancer screening TECHNIQUE: Computed tomography (CT) of the chest was performed without intravenous contrast. The dose -length product was 201.24 mGy-cm. Automated exposure control and iterative reconstruction technique were employed. COMPARISON: CT dated 03/31/2022 FINDINGS: No significant pleural or pericardial effusion. There is gynecomastia. No significant pleur al or pericardial effusion. Heart size normal. No lymphadenopathy. There are gallstones. There are ca lcified granulomas of the spleen. No endobronchial lesions. There is a 4 mm fissural nodule on the ri ght, likely benign, unchanged. There is a 2 mm right upper lobe nodule, coronal image 49. There is ap ical pleural thickening/scarring on the left. There is a 4 mm right lower lobe nodule, unchanged, dillon ge 83. No new pulmonary nodules or masses. There is a 3 mm left upper lobe nodule, image 65, unchange d. No pneumothorax. No endobronchial lesions. There are changes of anterior cervical fusion of the lo wer cervical spine, partially visualized. Mild thoracic spondylosis. IMPRESSION: 1. Lung-RADS category 2: Benign appearance or behavior. Continue annual screening with noncontrast lo w-dose chest CT in 12 months. Reviewed, dictated and finalized at location B. IMPRESSION: 1. Lung-RADS category 2: Benign appearance or behavior. Continue annual screeni ng with noncontrast low-dose chest CT in 12 months.
== END 2023-04-01 09:35 | disposition home or self-care (01) ==
LOC: ANHIMG 09:40
PROVIDERS: PCP Family Medicine; Referring Provider Neurological Surgery; Visit Provider Physician Assistant
DX: Z98.1 Arthrodesis status (principal)
CPT/HCPCS: 71271; 72040

== ENCOUNTER 2023-09-26 09:44 | Outpatient (CLI) | payer OTHER, SELFPAY ==
--- NOTE | 2023-10-17 15:35 | WPDSLEEPSTUD ---
Sleep Study Date of Study: 09/26/23 Ordering Provider: FOREIGN Griggs Interpreting Physician: Lorin Peacock DO Sleep Study Type: CPAP Titration Height: 1.75 m Weight: 92.986 kg Body Mass Index: 30.2 Neck Circumference (inches): 18 [place]: 9 Reason for Sleep Study PSG on 12/19/2013 showed overall AHI of 11 with desaturation down to 85%. PLMI of 89.6. PAP Titration on 01/02/2014 Titrated from CPAP 5 cm H2O to 11 cm H2O with complete resolution of SONYA on 11 cm H2O. PLMI of 89. Home sleep test on 08/11/2020 showed overall AHI of 15 with desaturation down to 86%. Patient is currently on AutoPAP 4-20 cm H2O. He is compliant with PAP Therapy and residual AHI <5. Sleep History The patient is a 52-year-old male with anxiety, asthma, COPD, depression, hyperlipidemia restless leg syndrome, history of tobacco use and SONYA on CPAP that had a Pap titration study ordered by the pulmonary group due to hypersomnia despite CPAP compliance. 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 He occasionally awakens from sleep short of breath. He occasionally awakens at night with heartburn, belching or cough. He frequently snores and is occasionally loud enough that others complain. He rarely has trouble sleeping when he has a cold. He occasionally wakes up gasping for air throughout the night. He rarely has breathing problems at night observed by himself or others. He denies sweating excessively at night. He rarely has heart palpitations or irregular heartbeats during the night. He occasionally falls asleep during the day but never while driving. He denies sleep paralysis and cataplexy. He occasionally has trouble at school or work due to sleepiness. He occasionally experiences vivid dreamlike scenes upon awakening or falling asleep. He denies feeling afraid of going to sleep. He rarely has nightmares. He frequently remembers his dreams. He occasionally has thoughts racing through his mind. He occasionally feels sad or depressed. He frequently has anxiety. He frequently has muscular tension. He frequently notices parts of his body jerk. He constantly kicks during the night. He frequently has crawling and aching feelings in his legs and occasionally has leg pain during the night. He occasionally grinds his teeth during sleep but rarely awakens with morning jaw pain. He is occasionally bothered by pain during the day but rarely awakened by pain during the night. He occasionally wakes up feeling stiff in the morning. He occasionally wakes up with sore or achy muscles. He occasionally wakes up with pain in the neck, spine or other joints. He goes to bed at 9:00 p.m. on both weekdays and weekends. It takes him 5 minutes to fall asleep. He does not typically wake up throughout the night but if he does he is able to fall back asleep within 15 minutes. He wakes up at 5:15 a.m. on weekdays and at 6:00 a.m. on the weekends. He typically gets 8 hours of sleep per night. He will stay in bed for 5 minutes after waking up in the morning. He is currently living with his . He denies consuming any caffeinated beverages within 2 hours of bedtime. He denies engaging in physical exercise before bedtime. He denies reading and watching television before falling asleep. He will take naps in the afternoon or the evening but they are not refreshing. He consumes 3 caffeinated beverages per day. He quit smoking cigarettes 5 years ago. He denies alcohol and recreational drug use. [facility] Past Medical History Medical History Anxiety Asthma BMI 30.0-30.9,adult Bronchitis Chest pain COPD (chronic obstructive pulmonary disease) Depression Excessive daytime sleepiness H/O headache History of stress test Hyperlipidemia Hypertriglyceridemia, essential Left knee pain Obstructive Sleep Apnea-Hypopnea Syndrome SONYA (obstructive sleep apnea) SONYA on CPAP Restless leg syndrome Rheumatoid factor positive Unsp
[2023-10-17 15:44] VITALS: BMI 30.2
== END 2023-09-27 07:26 | disposition home or self-care (01) ==
LOC: ANHCSM 09:45
PROVIDERS: PCP Family Medicine; Visit Provider Physician Assistant
DX: G47.33 Obstructive sleep apnea (adult) (pediatric) (principal); G25.81 Restless legs syndrome
CPT/HCPCS: 95811

== ENCOUNTER → 2024-01-24 09:13 | Outpatient (CLI) | payer OTHER, SELFPAY ==
--- NOTE | ~2024-01-24 | US_ITS ---
EXAMINATION: US abdomen complete DATE: 01/24/2024 09:46 INDICATION: Unspecified abdominal pain. Nausea. TECHNIQUE: Multiple grayscale and Doppler ultrasound images of the abdomen were obtained. COMPARISON: Chest CT 04/01/2023 FINDINGS: The visualized portions of the head, body, and tail of the pancreas are normal. There is di ffuse hepatic steatosis. There is normal flow in main portal vein. The gallbladder is contracted and contains gallstones. There is no sonographic Farmer sign. The common duct is normal and measures 4 mm . The spleen is normal size. The kidneys are normal in size. Abdominal aorta is normal in caliber. Th e inferior vena cava is normal. IMPRESSION: 1. Cholelithiasis. No evidence of acute cholecystitis. 2. Diffuse hepatic steatosis. Reviewed, dictated and finalized at location E. TRIC NEEDLE SPECIALIST
== END ==
PROVIDERS: PCP Nurse Practitioner Family; Visit Provider Nurse Practitioner Family
DX: R10.9 Unspecified abdominal pain (principal); R14.0 Abdominal distension (gaseous); K76.0 Fatty (change of) liver, not elsewhere classified; K80.20 Calculus of gallbladder without cholecystitis without obstruction
CPT/HCPCS: 76700

== ENCOUNTER 2024-02-06 08:35 | Outpatient (CLI) | payer OTHER, SELFPAY ==
--- NOTE | ~2024-02-06 | NM_ITS ---
EXAMINATION: NM hepatobiliary wo pharm DATE: 02/06/2024 12:27 INDICATION: Cholelithiasis without acute cholecystitis. COMPARISON: Ultrasound dated 01/24/2024 TECHNIQUE: 4.8 mCi Tc-99m mebrofenin (Choletec) was administered intravenously. Scintigraphic images of the abdomen were obtained for one hour. Additional 1 hour and 3 hour delayed scintigrams were obt ained in the anterior and right lateral projections.. FINDINGS: There is normal clearance of radiotracer from the blood pool. There is homogeneous tracer u ptake by the liver. Activity progresses through the common bile duct to the bowel with duodenal acti vity identified by 30 minutes. There is some reflux of activity into the stomach. The gallbladder is not visualized during the first hour of imaging. The gallbladder is also not identified on the 3 hour delayed imaging although could be obscured by the large amount of bowel activity in the right upper quadrant extending to the caudal margin of the liver. IMPRESSION: 1. No evident gallbladder activity which would be consistent with acute cholecystitis. In the absenc e of clinical findings of acute cholecystitis and given the appearance of a contracted stone filled g allbladder this could also reflect sequela of chronic cholecystitis. Reviewed, dictated and finalized at location A. IMPRESSION: 1. No evident gallbladder activity which would be consistent with acute cholec ystitis. In the absence of clinical findings of acute cholecystitis and given t he appearance of a contracted stone filled gallbladder this could also reflect sequela of chronic cholecystitis.
== END 2024-02-06 08:36 | disposition home or self-care (01) ==
LOC: ANHIMG 08:36
PROVIDERS: PCP Nurse Practitioner Family; Visit Provider Nurse Practitioner Family
DX: K80.20 Calculus of gallbladder without cholecystitis without obstruction (principal); R10.12 Left upper quadrant pain
CPT/HCPCS: 78226; A9537

== ENCOUNTER 2024-03-22 08:30 | Outpatient (CLI) | payer OTHER, SELFPAY ==
--- NOTE | 2024-03-22 08:43 | ECG_ITS ---
SEE SCANNED COPY FOR CONFIRMED REPORT. MTDD
[2024-03-22 09:05] LABS: Hematocrit 43.2 % (42.0-52.0); Hemoglobin 14.6 g/dL (14.0-18.0)
[2024-03-22 09:12] LABS: Alanine Aminotransferase 33 U/L (6-50); Albumin Level 4.4 g/dL (3.5-5.1); Alkaline Phosphatase 85 U/L (38-126); Amylase 104 U/L (30-110); Aspartate Amino Transferase 35 U/L (17-59); Bilirubin,Total 0.4 mg/dL (0.2-1.3); Lipase 270 U/L (23-300)
== END 2024-03-22 08:31 | disposition home or self-care (01) ==
PROVIDERS: Anesthesiology; PCP Nurse Practitioner Family; Visit Provider Surgery
DX: E78.5 Hyperlipidemia, unspecified (principal); K80.00 Calculus of gallbladder with acute cholecystitis without obstruction; D64.9 Anemia, unspecified; Z01.818 Encounter for other preprocedural examination
CPT/HCPCS: 36415; 80076; 82150; 83690; 85014; 85018; 93005

== ENCOUNTER 2024-03-26 01:41 | Day surgery (SDC) | payer OTHER, SELFPAY ==
[2024-03-21 13:54] VITALS: BMI 29.5
--- NOTE | 2024-03-21 13:59 | PC.NURSE ---
Report to the Outpatient Waiting Room, entrance under the green pavilion located off [facility], at time _1000_ on date _[id number]_. Planned Procedure Time: _1200_. Time changes happen often and if your time is changed the preop area will call you the afternoon before. - You and your visitor will be asked to self-screen and do not enter if you have any COVID symptoms. - A mask is optional within the hospital at this time. Patients may have clear liquids (water, carbonated beverages, clear teas, apple juice) until 3 hours prior to surgery with a maximum of 20 ounces. - No food from midnight until time of surgery Take the following medications with a SIP of water the morning of surgery: __Inhaler, Citalopram and Buspirone DO NOT STOP ANY OF YOUR OTHER PRESCRIPTION MEDICATIONS PRIOR TO SURGERY ?EXCEPT THE FOLLOWING Medications to discontinue per physician ____All vitamins and supplements Date to take last rnsh___[phone] Please no make-up, nail german, hairspray, perfume, deodorant, or body powder the day of surgery. No jewelry (including any body piercings) or valuables the day of surgery, leave them at home. Please take a shower or bath the night before, or the morning of, surgery with an antibacterial soap. Wear comfortable, loose fitting clothing. - Jewelry must be removed prior to entering the operating room. Rings and piercings that are not removed may be cut off. - The hospital will not accept responsibility for valuables. - Please leave all valuables, including medications, at home the day of surgery. If you are going home after surgery, a licensed emergency vehicle driver must drive you home. - NO public transportation without another adult if you receive anesthesia. - We recommend that an adult stay with you for 24 hours following discharge. - We also recommend that you do not drive, make important decision, drink alcoholic beverages, or take any drugs that were not prescribed by your health care provider for at least 24 hours after your discharge time. Follow any additional instructions given to you from your surgeon. If you or anyone in your household have experienced Covid symptoms in the past week, please notify your surgeon or the nurse liaison at the phone number below for possible testing. Telephone instructions given to __Chris___and asked if any additional questions and then verbalized understanding. Patient advised to call surgeon office or pre surgery nurse liaison [phone] if any additional questions.
[2024-03-26] VITALS (7 sets, daily range): BP systolic 101–138; BP diastolic 69–83; PULSE 62–69; RESP 9–16; TEMP 36.1–36.2; O2SAT 92–100
[2024-03-26] MEDS: LACTATED RINGERS 1,000 ML 30 ML IV CONT ×2 (14:21→15:56)
--- NOTE | 2024-03-26 14:43 | WPDHPUPDATE1 ---
History and Physical Update Update Date/Time: 03/26/24 14:43 History and Physical has been reviewed, including an updated exam of the patient. There are NO changes in the patient's condition. Risks, benefits, and alternatives have been discussed and questions answered. Patient agrees to proceed with procedure.
--- NOTE | 2024-03-26 14:43 | PM.IMHP ---
H&P: HPI History of Present Illness Date/Time: 03/26/24 14:43 Chief Complaint: Acute calculous cholecystitis Narrative: this is a 53-year-old man who presents for laparoscopic cholecystectomy. He reports no changes since last seen in the office. Review of Systems Review of Systems: All systems reviewed & are unremarkable except as noted in HPI and below Constitutional: Constitutional: Denies chills, Denies fever(s), Denies headache(s) and Denies weight loss Eyes: Eyes: Denies change in vision ENT: Denies dizziness, Denies headache(s), Denies neck mass and Denies throat swelling Cardiovascular: Cardiovascular: Denies chest pain, Denies lightheadedness and Denies dyspnea Respiratory: Respiratory: Denies cough, Denies dyspnea and Denies wheezing Gastrointestinal: Gastrointestinal: Denies abdominal pain, Denies change in bowel habits, Denies nausea and Denies vomiting Genitourinary: Genitourinary: Denies hematuria and Denies dysuria Musculoskeletal: Musculoskeletal: Reports as per HPI Integumentary/Breasts: Skin/Breast: Reports as per HPI Neurologic: Denies dizziness and Denies headache(s) Allergic/Immunologic: Allergic/Immunologic: Denies throat swelling and Denies wheezing PMFSH Past Medical History Medical History Anxiety Asthma BMI 30.0-30.9,adult Bronchitis Chest pain COPD (chronic obstructive pulmonary disease) Depression Excessive daytime sleepiness H/O headache History of stress test Hyperlipidemia Hypertriglyceridemia, essential Left knee pain Obstructive Sleep Apnea-Hypopnea Syndrome SONYA (obstructive sleep apnea) SONYA on CPAP Restless leg syndrome Rheumatoid factor positive Unspecified asthma Surgical History Surgical History History of discectomy History of tooth extraction Hx of cervical spine surgery Family History Family History Mother Family history of diabetes mellitus in first degree relative Family history of thyroid disease Diabetes mellitus Hypertension Grandparent Family history of coronary artery disease Father No problems noted. Sibling Diabetes mellitus Ulcerative colitis Unknown Cancer Arthritis Social History Social History Smoking packs per day: 1 Smoking cigarettes per day: 20.0 Years smoked: 30 Smoking pack-years: 30.00 Smoking status: Former smoker Tobacco type: cigarettes Second hand tobacco smoke exposure: Yes Smoking end date: 03/21/19 Additional smoking assessment comments: 1 ppd for 30 yrs, quit 2017 Alcohol intake: current Substance use: never Substance use type: does not use Do You Feel Safe in your Home?: Yes Lack of Transportation: No Lack of Food: Never True Current Housing: I Have Housing Concerned About Future Housing: No Difficulty Paying Gas/Electric Bills: No Difficulty Paying for Meds: No Currently Unemployed: No Education: High School Diploma/GED Difficulty w/ Childcare or Family Care: No Living arrangements: with family Occupation/Education: occupation 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 Gender identity (if verbalized by the patient): Male Spiritual care concerns: No Meds Home Medications and Allergies Home Medications Medication Instructions Recorded Confirmed Type montelukast 10 mg tablet 10 mg PO DAILY 02/03/21 03/26/24 History aspirin 81 mg tablet,delayed 81 mg PO QAM #30 tabs 02/04/21 03/26/24 Rx release leflunomide 20 mg tablet 20 mg PO DAILY 08/18/21 03/26/24 History budesonide-formoterol HFA 160 See Rx Instructions .Route 01/13/23 03/26/24 Rx mcg-4.5 mcg/actuation aerosol .COMPLEX #30.6 grams inhaler albuterol sulfate 90 mcg/actuation 1 inh inhalation QID PRN Shortness 01/14/23 03/26/24 Rx aerosol inhale
--- NOTE | 2024-03-26 14:49 | WPDANESEPPF ---
Anes - Initial Pre Proc Eval Procedure: Operation Date: 03/26/24 15:00 Proposed Procedures p Laparoscopic Cholecystectomy, Possible Open - Cheko Carlisle DO Date/Time: 03/26/24 14:49 Surgeon: Cheko Carlisle DO Pre Op Diagnosis: acute calculous cholecystitis Patient Data Age: 53 Gender: M Height: 1.75 m Weight: 91.3 kg Last Vital Signs Temp 36.2 C L 03/26/24 14:15 Pulse 65 03/26/24 14:15 Resp 16 03/26/24 14:15 BP 138/83 03/26/24 14:15 Pulse Ox 100 03/26/24 14:15 O2 Del Method Room Air 03/26/24 14:15 Allergies Allergy/AdvReac Type Severity Reaction Status Date / Time Chspcrp-VEA-OnR Reductase AdvReac Intermediate elevated Verified 03/26/24 14:12 Inhibitor liver [Kcbyosz-Fvs-Ycg Reductase function Inhibitor] Home Medications Medication Instructions Recorded Confirmed Type montelukast 10 mg tablet 10 mg PO DAILY 02/03/21 03/26/24 History aspirin 81 mg tablet,delayed 81 mg PO QAM #30 tabs 02/04/21 03/26/24 Rx release leflunomide 20 mg tablet 20 mg PO DAILY 08/18/21 03/26/24 History budesonide-formoterol HFA 160 See Rx Instructions .Route 01/13/23 03/26/24 Rx mcg-4.5 mcg/actuation aerosol .COMPLEX #30.6 grams inhaler albuterol sulfate 90 mcg/actuation 1 inh inhalation QID PRN Shortness 01/14/23 03/26/24 Rx aerosol inhaler (ProAir HFA) Of Breath #8.5 grams ezetimibe 10 mg tablet (Zetia) 10 mg PO DAILY #90 tabs 08/22/23 03/26/24 Rx lansoprazole 30 mg capsule,delayed 30 mg PO DAILY #90 caps 09/08/23 03/26/24 Rx release pitavastatin calcium 2 mg tablet 2 mg PO DAILY #90 tabs 09/08/23 03/26/24 Rx (Livalo) semaglutide (weight loss) 0.25 0.25 mg (0.5 mL) subcut WEEKLY #2 01/20/24 03/26/24 Rx mg/0.5 mL subcutaneous pen mL injector ([employer]) alprazolam 0.5 mg tablet 0.5 mg PO DAILY PRN Anxiety #60 01/25/24 03/26/24 Rx tabs citalopram 20 mg tablet (Celexa) 20 mg PO DAILY #90 tabs 02/01/24 03/26/24 Rx ropinirole 5 mg tablet 5 mg PO BID 02/14/24 03/26/24 History buspirone 15 mg tablet 15 mg PO BID #180 tabs 03/08/24 03/26/24 Rx ecmfstt-ttebzamzl-kzll tablet 1 tablet PO DAILY 03/21/24 03/26/24 History ferrous sulfate 325 mg (65 mg 325 mg PO DAILY 03/21/24 03/26/24 History iron) tablet potassium 99 mg tablet 99 mg PO DAILY 03/21/24 03/26/24 History Patient hx anesthesia problems: none Family hx anesthesia problems: none Results Review: All pre-operative results and documents have been reviewed as part of the pre-operative evaluation. [facility] Past Medical History Medical History Anxiety Asthma BMI 30.0-30.9,adult Bronchitis Chest pain COPD (chronic obstructive pulmonary disease) Depression Excessive daytime sleepiness H/O headache History of stress test Hyperlipidemia Hypertriglyceridemia, essential Left knee pain Obstructive Sleep Apnea-Hypopnea Syndrome SONYA (obstructive sleep apnea) SONYA on CPAP Restless leg syndrome Rheumatoid factor positive Unspecified asthma Surgical History Surgical History History of discectomy History of tooth extraction Hx of cervical spine surgery Family History Family History Mother Family history of diabetes mellitus in first degree relative Family history of thyroid disease Diabetes mellitus Hypertension Grandparent Family history of coronary artery disease Father No problems noted. Sibling Diabetes mellitus Ulcerative colitis Unknown Cancer Arthritis Social History Social History Smoking packs per day: 1 Smoking cigarettes per day: 20.0 Years smoked: 30 Smoking pack-years: 30.00 Smoking status: Former smoker Tobacco type: cigarettes Second hand tobacco smoke exposure: Yes Smoking end date: 03/21/19 Additional smoking assessment comments: 1
[2024-03-26] MEDS: BUPIVACAINE/EPINEPHRINE 0.5% 10 ML VIAL 30 ML INFILTRATE (15:27)
--- NOTE | 2024-03-26 15:51 | W.PM.PROC2 ---
Procedure Note - Detailed Date of Procedure 03/26/24 Pre-op Diagnosis acute calculous cholecystitis Post-op Diagnosis Same Procedure Performed Laparoscopic Cholecystectomy Surgeon Cheko Carlisle, DO Anesthesia General and Local (0.5% bupivacaine) Indications This is a 53-year-old man who presented for laparoscopic cholecystectomy. He had been experiencing some right upper quadrant abdominal pains and abdominal ultrasound showed evidence of cholelithiasis. He then underwent a HIDA scan which showed evidence of cystic duct occlusion concerning for acute cholecystitis. Discussions were made with the patient about treatment options and decision was made to proceed with laparoscopic cholecystectomy, possible open. Findings Laparoscopic cholecystectomy was performed. The gallbladder showed evidence of chronic cholecystitis with a small contracted gallbladder filled with stones. The cystic duct appeared normal in size. There was evidence of chronic gallbladder wall thickening. No other intra-abdominal abnormalities were noted. The gallbladder was removed and sent to the lab for pathology. Description of Procedure Procedure as well as risks, benefits, and alternatives were discussed with patient. Written consent was obtained and placed in chart prior to procedure. The patient was brought back to surgical suite. Patient was placed in supine position on operating table. Time-out was done to confirm patient and procedure. Patient was then intubated by the anesthesia department. Abdomen was prepped and draped in sterile fashion using chlorhexidine prep. 0.5% bupivacaine with epinephrine was infiltrated at each site of incision. A 5 millimeter incision was made near the umbilicus, and a 5 millimeter Optiview trocar was advanced through the abdominal layers under direct visualization. Once inside the abdominal cavity, carbon dioxide was insufflated to create a pneumoperitoneum. The camera was inserted and the abdomen was inspected. No immediate abnormalities were identified. The patient was placed in reverse Trendelenburg position and rotated slightly to the left. An 11 millimeter incision was made in the subxiphoid region, and an 11 millimeter trocar was inserted under direct visualization. Two 5 millimeter incisions were made in the right upper quadrant, and two 5 millimeter trocars were inserted under direct visualization. The gallbladder was identified and grasped at the fundus and retracted superiorly. It was then grasped at the infundibulum retracted laterally. Careful dissection around the neck of the gallbladder was performed using blunt dissection with a [place] grasper and hook electrocautery. The cystic duct was identified, and a window was created behind it. The cystic artery was also identified and a window was created behind it. The critical view of safety was identified, visualizing the cystic duct running directly into the neck of the gallbladder, and the cystic artery running directly into the wall of the gallbladder. A 5 millimeter clip embedded systems developer was then used to place 2 clips proximally and 1 clip distally on both the cystic duct and cystic artery. They were then both transected using endoscopic scissors. Once safely away from the josy hepatitis, the gallbladder was dissected free from the liver bed using hook electrocautery. Hemostasis was achieved along the way. The gallbladder was removed completely and then removed through the subxiphoid port. The liver bed was then inspected. Hemostasis appeared adequate, and our clips appeared secure. The area was gently irrigated with sterile saline. No other abnormalities were seen. The patient was flattened out in bed, and 1 final inspection was made around the abdominal cavity. The subxiphoid port was removed, and a Jonnie Arron cone was used to approximate the fascia with an 0-Vicryl simple interrupted suture. The remaining ports were then removed under direct visualization, the camer
== END 2024-03-26 17:37 | disposition home or self-care (01) ==
PROVIDERS: PCP Nurse Practitioner Family; Visit Provider Surgery
PROC: 0FT44ZZ Resection of Gallbladder, Percutaneous Endoscopic Approach (ICD-10-PCS; CPT 47562; principal; 2024-03-26 15:00)
DX: K80.10 Calculus of gallbladder with chronic cholecystitis without obstruction (principal); F41.9 Anxiety disorder, unspecified; J45.909 Unspecified asthma, uncomplicated; J44.9 Chronic obstructive pulmonary disease, unspecified; F32.A Depression, unspecified; G47.19 Other hypersomnia; E78.5 Hyperlipidemia, unspecified; E78.1 Pure hyperglyceridemia; G47.33 Obstructive sleep apnea (adult) (pediatric); Z99.89 Dependence on other enabling machines and devices; G25.81 Restless legs syndrome; E66.9 Obesity, unspecified; Z68.29 Body mass index [BMI] 29.0-29.9, adult; Z79.82 Long term (current) use of aspirin; Z79.51 Long term (current) use of inhaled steroids; Z79.85 Long-term (current) use of injectable non-insulin antidiabetic drugs; Z98.890 Other specified postprocedural states; Z98.1 Arthrodesis status; Z87.891 Personal history of nicotine dependence; Z80.9 Family history of malignant neoplasm, unspecified; Z82.49 Family history of ischemic heart disease and other diseases of the circulatory system
CPT/HCPCS: 47562; 36415; 80076; 82150; 83690; 85014; 85018; 88304; 93005; A9270; J0690; J1100; J1170; J1885; J2250; J2405; J2704; J3010; J7030; J7120

== ENCOUNTER 2024-04-02 13:59 | Outpatient (CLI) | payer OTHER, SELFPAY ==
--- NOTE | ~2024-04-02 | CT_ITS ---
CT Scan of the Chest without Contrast: Clinical Indication: Lung cancer screening, nicotine dependence Technique: Contiguous sections were acquired throughout the chest without intravenous contrast. Dose reduction technique was used on this scan by utilizing automated exposure control and iterative recon struction technique. The dose-length product (DLP) was 176.70 mGy-cm. COMPARISON: 04/01/2023 Findings: There is no evidence of any significant mediastinal, hilar or axillary lymphadenopathy. The mediastin al soft tissues appear normal. There is no evidence of pleural or pericardial effusion. Stable 3 mm right lower lobe pulmonary nodule (axial image 86). Stable 3 mm left upper lobe pulmonary nodule (axial image 68). Images through the upper abdomen reveal no abnormalities. Impression: Lung RADS 2: Benign appearance. 12 month follow-up screening CT advised. Reviewed, dictated and finalized at [facility]. Impression: Lung RADS 2: Benign appearance. 12 month follow-up screening CT advised.
== END 2024-04-02 14:00 | disposition home or self-care (01) ==
PROVIDERS: PCP Nurse Practitioner Family; Visit Provider Physician Assistant
DX: Z12.2 Encounter for screening for malignant neoplasm of respiratory organs (principal); Z87.891 Personal history of nicotine dependence
CPT/HCPCS: 71271

== ENCOUNTER 2025-01-01 08:11 | Outpatient (CLI) | payer OTHER, SELFPAY ==
--- NOTE | 2025-01-01 13:11 | WPDPFTINT ---
PFT Procedure Performed PFT Procedure Performed Spirometry with Pre/Post Bronchodilator Plethysmography (Lung Vol) Diffusing Cap (DLCO) Flow Vol Loop PFT Interpretation This is a pulmonary function test with pre and post-bronchodilator spirometry, plethysmography and diffusing capacity. The test was performed and results interpreted in accordance with the 2019 and 2005 ATS/ERS Task Force guidelines respectively using the Global Lung Function Initiative-2012 reference equations. Patient demonstrated good effort and cooperation. Reproducibility criteria were met. The quality of the pre bronchodilator spirometry maneuver was Grade A and post bronchodilator spirometry maneuver was Grade A. Findings: Spirometry: The contour the inspiratory and expiratory flow tracing are normal. The pre bronchodilator FVC is 4.20 L, 89% predicted. The pre bronchodilator FEV1 is 3.11 L, 84% predicted. The pre bronchodilator FEV1: FVC ratio 74%. The post bronchodilator FVC is 4.21 L, representing no change. The post bronchodilator FEV1 is 3.09 L, representing no change. The post bronchodilator FEV1: FVC ratio is 73%. Plethysmography: The total lung capacity is 6.37 L, 94% predicted. The functional residual capacity is 3.96 L, 115% predicted. The residual volume is 2.16 L, 106% predicted. Diffusing capacity: The diffusing capacity unadjusted for hemoglobin and carboxyhemoglobin is 22.3, 75% predicted. The diffusing capacity adjusted for alveolar volume is 3.87, 86% predicted. In comparison to previous pulmonary function testing on 07/31/2020 the post bronchodilator FVC has increased from 3.63 L to 4.21 L. The post bronchodilator FEV1 is unchanged from 2.73 to 3.09. The total lung capacity is unchanged from 5.57 to 6.37. The functional residual capacity is increased from 2.80 L to 3.96 L. The residual volume is increased from 1.85 L to 2.16 L. The diffusing capacity unadjusted for hemoglobin and carboxyhemoglobin is unchanged from 22.1 to 22.3. The diffusing capacity adjusted for alveolar volume has decreased from 4.55 to 3.87. Impression: The spirometry is normal without evidence of an obstructive abnormality. There is no significant improvement after inhaling a single dose of albuterol. The lung volumes are normal. The diffusing capacity is normal. in comparison to previous pulmonary function testing on 07/31/2020 there has been a greater than anticipated time dependent increase in the FVC, functional residual capacity and residual volume. There has been a greater than anticipated time dependent decrease in the diffusing capacity adjusted for alveolar volume with no significant change in the FEV1 total lung capacity or diffusing capacity unadjusted for hemoglobin and carboxyhemoglobin. Clinical correlation is recommended.
== END 2025-01-01 08:12 | disposition home or self-care (01) ==
LOC: ANHPFT 08:14
PROVIDERS: PCP Family Medicine; Visit Provider Physician Assistant
DX: J45.22 Mild intermittent asthma with status asthmaticus (principal); J43.9 Emphysema, unspecified
CPT/HCPCS: 94060; 94726; 94729

== ENCOUNTER 2025-02-27 00:36 | Day surgery (SDC) | payer OTHER, SELFPAY ==
[2025-02-25 13:04] VITALS: BMI 24.7
--- OUTSIDE RECORDS SUMMARY | 2025-02-27 00:39 | XMS_ITS ---
Author Organization Unknown Medications Medication Instructions Effective Dates (start - stop) Status citalopram 20 MG Oral Tablet [id number] 0:00:00Z - Completed ezetimibe 10 MG Oral Tablet [id number] :00:00Z - Completed acetaminophen 325 MG / hydrocodone bitartrate 5 MG Oral Tablet - Completed buspirone hydrochloride 15 M G Oral Tablet - Completed lansoprazole 30 MG Delayed Release Oral Capsule - Completed lansoprazole 30 MG Delayed Release Oral Capsule - Completed montelukast 10 MG Oral Tablet 2024-05-01 00:00:00Z - Completed lansoprazole 30 MG Delayed Release Oral Capsule - Completed ropinirole 0.5 MG Oral Tablet 2023-10-17 00:00:00Z - Completed ropinirole 0.5 MG Oral Tablet 2023-11-30 00:00:00Z - Completed citalopram 20 MG Oral Tablet [id number] 0:00:00Z - Completed ezetimibe 10 MG Oral Tablet [id number] :00:00Z - Completed pitavastatin calcium 2 MG Or al Tablet [Livalo] - Completed pitavastatin calcium 2 MG Or al Tablet [Livalo] - Completed buspirone hydrochloride 15 M G Oral Tablet - Completed buspirone hydrochloride 15 M G Oral Tablet - Completed buspirone hydrochloride 15 M G Oral Tablet - Completed buspirone hydrochloride 15 M G Oral Tablet - Completed leflunomide 20 MG Oral Tablet 2024-05-31 00:00:00Z - Completed alprazolam 0.5 MG Oral Tablet 2024-01-30 00:00:00Z - Completed buspirone hydrochloride 15 M G Oral Tablet - Completed leflunomide 20 MG Oral Tablet 2023-09-14 00:00:00Z - Completed montelukast 10 MG Oral Tablet 2024-06-12 00:00:00Z - Completed leflunomide 20 MG Oral Tablet 2023-06-28 00:00:00Z - Completed ropinirole 0.5 MG Oral Tablet 2024-03-30 00:00:00Z - Completed ezetimibe 10 MG Oral Tablet [id number] :00:00Z - Completed citalopram 20 MG Oral Tablet [id number] 0:00:00Z - Completed citalopram 20 MG Oral Tablet [id number] 0:00:00Z - Completed pitavastatin calcium 2 MG Or al Tablet [Livalo] - Completed pitavastatin calcium 2 MG Or al Tablet [Livalo] - Completed pitavastatin calcium 2 MG Or al Tablet [Livalo] - Completed citalopram 20 MG Oral Tablet [id number] 0:00:00Z - Completed leflunomide 20 MG Oral Tablet 2023-12-14 00:00:00Z - Completed buspirone hydrochloride 15 M G Oral Tablet - Completed buspirone hydrochloride 15 M G Oral Tablet - Completed montelukast 10 MG Oral Tablet 2024-03-26 00:00:00Z - Completed buspirone hydrochloride 15 M G Oral Tablet - Completed lansoprazole 30 MG Delayed Release Oral Capsule - Completed montelukast 10 MG Oral Tablet 2023-09-22 00:00:00Z - Completed 0.5 ML semaglutide 1 MG/ML Auto-Injector [Jazmyne] - Completed montelukast 10 MG Oral Tablet 2023-12-24 00:00:00Z - Completed citalopram 20 MG Oral Tablet [id number] 0:00:00Z - Completed citalopram 20 MG Oral Tablet [id number] 0:00:00Z - Completed montelukast 10 MG Oral Tablet 2024-06-14 00:00:00Z - Completed Patient Care team information Name Category Status Period Participants - - Proposed period not known -
--- OUTSIDE RECORDS SUMMARY | 2025-02-27 00:39 | XMS_ITS ---
Author Organization [facility] Address [address] [place] [address] Care Team Providers Care Import Export Clerk Name Role Phone Melba MEJIA, David Primary Care Provider Unavaila Dione Golden Unavailable [phone] REASON FOR VISIT Refill Medications Medication SIG (Take, Route, Frequency, Duration) Notes Start Date End Date Status Montelukast Sodium 10 MG 1 tablet Orally Once a day for 90 days Active Encounters Encounter Location Date Provider Diagnosis [address] [address] 12/26/2024 Dione Mcghee Dermatitis, unspec ified L30.9 Assessments Encounter Date Diagnosis (ICD Code) Assessment Notes Treatment Notes Treatment Clinical Notes Section Notes 12/26/2024 Dermatitis, unspecified (ICD-10 - L30.9) Plan Of Treatment Medication Medication Name Sig Start Date Stop Date Notes Montelukast Sodium 10 MG 1 tablet Orally Once a day for 90 days Next Appt Details Provider Name:Dione guthrie, 04/02/2025 08:45:00 AM, [address] [facility], [address], [place], [address], Progress Notes * Glen DEMARCODOB: (54 yo M)Acc No.[id number]:12/26/2024 Patient: Huyen Glen PATRICIA :1970 A ge:54 Y S ex:Male Address:[address], [place], [address] * Refills Refill Montelukast Sodium Tablet, 10 MG, Orally, 90, 1 tablet, Once a day, 90 days, Refills=0 * true * Date: Generated for eJrod burns/Katt/Hetal on: 0 02/27/2025 12:39 AM CDT
--- OUTSIDE RECORDS SUMMARY | 2025-02-27 00:39 | XMS_ITS ---
Author Organization [facility] Address [address] [place] [address] Care Team Providers Care Exhibit Artist Name Role Phone Melba MEJIA, David Primary Care Provider ANA Carter [phone] REASON FOR VISIT refil Medications Medication SIG (Take, Route, Fr equency, Duration) Notes Start Date End Date Status rOPINIRole HCl 0.5 MG TAKE 1 TABLET BY M OUTH 1 TO 3 HOURS BEFORE BEDTIME TWICE DAILY for 60 days Active Encounters Encounter Location Date Provider Diagnosis [facility] [address] [facility] [address] [place], [place] [id number] 11/28/2023 ANA JULIO Plan Of Treatment Medication Medication Name Sig Start Date Stop Date Notes rOPINIRole HCl 0.5 MG TAKE 1 TABLET BY M OUTH 1 TO 3 HOURS BEFORE BEDTIME TWICE DAILY for 60 days Progress Notes * Glen DEMARCODOB: (53 yo M)Acc No.[id number]:11/28/2023 Patient: Huyen Glen PATRICIA :1970 A ge:53 Y S ex:Male Address:[address] [place] [address] * Refills Refill rOPINIRole HCl Tablet, 0.5 MG, 60, TAKE 1 TABLET BY MOUTH 1 TO 3 HOURS BEFORE BEDTIME TWICE DAILY, 60 days, Refills=3 * true * Date: Generated for Printi ng/Fahoraceg/eTransmitting on: 0 02/27/2025 12:39 AM CDT
--- OUTSIDE RECORDS SUMMARY | 2025-02-27 00:40 | XMS_ITS | Patient Health Record ---
Author Organization [facility] Address [address] [place] [address] Care Team Providers Care Outbound Telemarketer Name Role Phone Melba MEJIA, David Primary Care Provider ANA Carter Unavailable [phone] Allergies No Known Allergies Reason For Referral No Information Medications Medication SIG (Take, Route, Frequency, Duration) Notes Start Date End Date Status Leflunomide 20 MG 1 tablet Orally Once a day for 30 day(s) Unknown Lansoprazole 30 MG 1 capsule before a m eal Orally Once a day for 30 day(s) Unknown Ezetimibe 10 MG 1 tablet Orally Once a day for 30 day(s) Unknown Citalopram Hydrobromide 20 MG 1 tablet Orally Once a day for 30 day(s) Unknown ALPRAZolam 0.5 MG 1 tablet Orally Twic e a day Unknown Pitavastatin Calcium 2 MG 1 tablet Orall y Once a day for 30 day(s) Unknown Montelukast Sodium 10 MG 1 tablet Orally Once a day for 30 day(s) Unknown rOPINIRole HCl 0.5 MG TAKE 1 TABLET BY M OUTH 1 TO 3 HOURS BEFORE BEDTIME TWICE DAILY for 90 days Active Tiotropium Ottertail Monohydrate 1.25 MCG/ACT 2 puffs Inhalation Once a day Unknown busPIRone HCl 15 MG 1 tablet Orally Twic e a day Unknown Budesonide-Formoterol Fumarate 160-4.5 MCG/ACT 2 puffs Inhalation Twice a day Unknown Aspirin 81 MG 1 capsule Orally Onc e a day for 30 day(s) Unknown Albuterol Sulfate HFA 108 (90 Base) MCG/ACT 1 puff as needed Inhalation every 4 hrs Unknown Social History Tobacco Use: Social History Observation Description Date Details (start date - stop date) Never Smoker NA - NA Tobacco Use/Smoking Question Answer Notes Are you a nonsmoker Problems Problem Type SNOMED Code ICD Code Onset Dates Problem Status W/U Status Risk Notes Problem Restless legs syndrome (83315822) Restless legs syndrome (G25.81) Active confirmed Problem Pain co-occurrent and due to varicose veins of bilateral legs (1524418867266 9100) Varicose veins of leg with pain, 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) Active confirmed Encounters Encounter Location Date Provider Diagnosis [address] [id number] 12/28/2024 ANA JULIO [address] [id number] 12/31/2024 ANA JULIO Plan Of Treatment No Information Insurance Providers Payer Name Payer Address Payer Phone Subscriber Number Group Number Insured Name Patient Relationship to Insured Coverage Start Date Coverage End Date [employer] [address] [place] [id number] Glen Demarco Self - patient is the insured Medical (General) History Medical History History ICD Code Arthritis Asthma Emphysema COPD Surgical History Surgery Date(Month/Year)
--- OUTSIDE RECORDS SUMMARY | 2025-02-27 00:40 | XMS_ITS | Encounter Summary ---
Author Organization [facility] Address [address] [place] [address] Phone Care Team Providers Care Credit Controller Name Role Phone David Reilly MD Primary Care Provider [phone] Encounter Details Date Type Department Care Team (Late st Contact Info) Description 02/26/2025 Telephone [facility] Rheumatology [address] [place] [address] Itz Mayes Social History Tobacco Use Types Packs/Day Years Used Date Smoking Tobacco: Former Cigarettes Q uit: 2018 Smokeless Tobacco: Never Sex and Gender Information Value Date Recorded Sex Assigned at Not on file Legal Sex Male 12:09 PM [employer]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 This is likely other areas that degenerated. Did have a little bit of soft tissue swelling that was described as minimal. Ice may help to the site. Also can order physical therapy if he would like. Otherwise it the pain is too bad I would recommend following up with his orthopedic surgeon. documented in this encounter Plan of Treatment Not on file documented as of this encounter Visit Diagnoses Not on filedocumented in this encounter Care Teams Credit Controller Relationship Specialty Start Date End Date David Reilly MD PCP - General Family Medicine 01/06/21 documented as of this encounter
--- OUTSIDE RECORDS SUMMARY | 2025-02-27 00:40 | XMS_ITS ---
Author Organization [facility] Address [address] [place] [address] Care Team Providers Care Melter Helper Name Role Phone Melba MEJIA, David Primary Care Provider Dione Hermosillo Unavailable [phone] Allergies No Known Allergies REASON FOR VISIT New Rash, COPD/Asthma follow-up - history of nodules and following with Dr. Wilson and rheumatology for RA Medications Medication SIG (Take, Route, Frequency, Duration) Notes Start Date End Date Status Montelukast Sodium 10 MG 1 tablet Orally Once a day for 30 days 08/21/2024 Active Cetirizine HCl 10 MG 1 tablet Orally Twice a day for 30 days 08/21/2024 Active Famotidine 20 MG 1 tablet Orally Twice a day for 30 days 08/21/2024 Active PROAIR HFA 90 mcg/inh 2 puff(s) inhaled 4 times a day Active SINGULAIR 10 mg 1 tab(s) orally once a day for 90 days Active NASAL WASHES N/A as directed intranasally as needed for 30 Active SYMBICORT 160 mcg-4.5 mcg/inh 2 puff(s) inhaled 2 times a day Active Triamcinolone Acetonide 0.1 % 1 application Externally Twice a day for 30 days 08/21/2024 Active Leflunomide 20 MG 1 tab(s) orally Active CeleXA 20 MG 1 tab(s) orally once a day for 30 day(s) Active Nasacort Allergy 24HR 55 MCG/ACT 2 spray(s) intranasally once a day for 30 day(s) Not-Taking NASACORT ALLERGY 24HR 55 mcg/inh 2 spray(s) intranasally once a day for 30 day(s) Not-Taking Livalo 1 MG 1 tab(s) orally once a day for 30 day(s) Active Ezetimibe 10 MG 1 tab(s) orally once a day for 30 day(s) Active Lansoprazole 30 MG 1 cap(s) orally once a day for 30 day(s) Active rOPINIRole HCl 0.5 MG 1 tab(s) orally 3 times a day for 30 day(s) takes twice a day Active LEFLUNOMIDE 20 mg 1 tab(s) orally Active XANAX 0.5 mg 1 tab(s) orally 3 times a day takes prn Active LIVALO 1 mg 1 tab(s) orally once a day for 30 day(s) Active CELEXA 20 mg 1 tab(s) orally once a day for 30 day(s) Active LANSOPRAZOLE 30 mg 1 cap(s) orally once a day for 30 day(s) Active BUSPIRONE 15 mg 1 tab(s) orally 2 times a day for 30 day(s) Active Ferrous Sulfate Acti ve EZETIMIBE 10 mg 1 tab(s) orally once a day for 30 day(s) Active ROPINIROLE 0.5 mg 1 tab(s) orally 3 times a day for 30 day(s) takes twice a day Active PAMELA 24 HOUR ALLERGY 180 mg 1 tab(s) orally once a day Active Calcium-Magnesium Ac tive Potassium 99 MG 1 tablet Orally Once a day Active Semaglutide 3 MG as directed Orally Active Social History Tobacco Use: Social History Observation Description Date Details (start date - stop date) Never Smoker NA - NA Smoking Smart Form: Question Answer Notes Are you a: former smoker How long it has been since you last smoked? 1-5 years Tobacco Control (Standard) Question Answer Notes Tobacco use: Nonsmoker Vital Signs Blood pressure systolic 146 mm Hg 08/21/20 24 Blood pressure diastolic 89 mm Hg 024 Height 69 in 08/21/2024 Weight 182.4 lbs 08/21/2024 BMI 26.93 kg/m2 08/21/2024 Oximetry 99 % 08/21/2024 Encounters Encounter Location Date Provider Diagnosis [facility] [address] [place] [id number] 08/21/2024 Dione Mcghee Moderate persistent asthma, uncomplicated J45.40 ; Dermatitis, unspecified L30.9 ; Allergic rhinitis due to pollen J30.1 ; Allergic rhinitis due to animal (cat) (dog) hair and dander J30.81 ; Other allergic rhinitis J30.89 and Other chronic allergic conjunctivitis H10.45 Assessments Encounter Date Diagnosis (ICD Code) Assessment Notes Treatment Notes Treatment Clinical Notes Section Notes 08/21/2024 Moderate persistent asthma, uncomplicated (ICD-10 - J45.40) Moderate persistent asthma which appears under good control with Symbicort 160/4.5 mcg and Singulair. He is also following with Dr. Wilson for pulmonary nodules. CT to be repeated in 1 year. Nodules currently are stable. Spirometry at last check showed possible restriction and consistent with spirometry from 2020. Labs -2017 showed IgE 2736 and positive ImmunoCAPs to aeroallergens. 08/21/2024 Dermatitis, unspecified (ICD-10 - L30.9) Unclear cause for dermatitis. May be related to exposurse with renovating an old building. Renovations are now complete. No known exposures to poison ricky. Start triamcinolone BID, Singulair, Famotidine 20 mg BID and Zyrtec. Instructed to restart leflunomide. F/u in 2-3 weeks. Recommend biopsy if no improvement. At this time, I do not think rash is related to Wegovy. 08/21/2024 Allergic rhinitis due to pollen (ICD-10 - J30.1) Glen clearly suffers from atopic disease based upon our skin testing and history. Accordingly, we have introduced a new, aggressive medication regimen, discussed nasal washes and allergy-specific avoidance measures. We also discussed adjunctive therapies including subcutaneous, specific allergen immunotherapy as relates to the treatment and prevention of atopic disease. He is not interested in immunotherapy at this time. 08/21/2024 Allergic rhinitis due to animal (cat) (dog) hair and dander (ICD-10 - J30.81) 08/21/2024 Other allergic rhinitis (ICD-10 - J30.89) 08/21/2024 Other chronic allergic conjunctivitis (ICD-10 - H10.45) Given ocular signs and symptoms I encouraged allergy avoidance measures and meds as above. If symptoms persist, consider adding additional medications including intraocular antihistamine/mas t cell stabilizer, PRN 08/21/2024 Other Plan Of Treatment Medication Medication Name Sig Start Date Stop Date Notes Montelukast Sodium 10 MG 1 tablet Orally Once a day for 30 days 08/21/2024 Cetirizine HCl 10 MG 1 tablet Orally Twi ce a day for 30 days 08/21/2024 Famotidine 20 MG 1 tablet Orally Twic e a day for 30 days 08/21/2024 PROAIR HFA 90 mcg/inh 2 puff(s) inhaled 4 times a day SINGULAIR 10 mg 1 tab(s) orally once a day for 90 days NASAL WASHES N/A as directed intranas ally as needed for 30 SYMBICORT 160 mcg-4.5 mcg/inh 2 puff(s) inhaled 2 times a day Triamcinolone Acetonide 0.1 % 1 applicat ion Externally Twice a day for 30 days 08/21/2024 Treatment Notes Assessment Notes Moderate persistent asthma, uncomplicate d Moderate persistent asthma which appears under good control with Symbicort 160/4.5 mcg and Singulair. He is also following with Dr. Wilson for pulmonary nodules. CT to be repeated in 1 year. Nodules currently are stable. Spirometry at last check showed possible restriction and consistent with spirometry from 2020. Labs -2017 showed IgE 2736 and positive ImmunoCAPs to aeroallergens. Dermatitis, unspecified Unclear cause fo r dermatitis. May be related to exposurse with renovating an old building. Renovations are now complete. No known exposures to poison ricky. Start triamcinolone BID, Singulair, Famotidine 20 mg BID and Zyrtec. Instructed to restart leflunomide. F/u in 2-3 weeks. Recommend biopsy if no improvement. At this time, I do not think rash is related to Wegovy. Allergic rhinitis due to pollen Christopher clearly suffers from atopic disease based upon our skin testing and history. Accordingly, we have introduced a new, aggressive medication regimen, discussed nasal washes and allergy-specific avoidance measures. We also discussed adjunctive therapies including subcutaneous, specific allergen immunotherapy as relates to the treatment and prevention of atopic disease. He is not interested in immunotherapy at this time. Other chronic allergic conjunctivitis Given ocular signs and symptoms I encouraged allergy avoidance measures and meds as above. If symptoms persist, consider adding additional medications including intraocular antihistamine/mast cell stabilizer, PRN Next Appt Details Follow Up: 3 Weeks, Reason: Provider Name:Dione isidrojoe, 04/02/2025 08:45:00 AM, [address] [facility] [facility], [address], [place], [address], Progress Notes * Glen DEMARCODOB: (53 yo M)Acc No.[id number]:08/21/2024 Progress Notes Patient: Glen ZARAGOZA Provider: Tino Mcghee MD :1970 A ge:53 Y S ex:Male Date:08/21/2024 Address:[address] [id number] Pcp:David Reilly MD Subjective: * Chief Complaints: * N ew RashCOPD/Asthma follow-up - history of nodules and following with Dr. Wilson and rheumatology for RA * HPI: * Introduction: I had the pleasure of seeing Yvette Demarco, a 53 year old with RA, ARC, SONYA on CPAP, anxiety disorder, RA and asthma presenting for f/u evaluation of rhinitis. He was last evaluated 04-03-2024. Rash started 08-03-2024 with erythematous, dry patches on lower extremities. Rash has since spread to his trunk and upper extremities. He was given IM steroids by Dr. Reilly's office with some improvement, but has not resolved. He has been receiving Wegovy for about 10 weeks.? N o exposure to echeverria or poison ricky. He started using a tanning bed at his home. He stopped leflunomide last week to see if rash improved. He is applying Cortisone 10 and calamine lotion. He is taking Singulair, Zyrtec 10 mg and Benadryl TID for itching. ? Asthma is under good control with Symbicort. He is not requiring albuterol. He follows with Dr. Wilson for pulmonary nodules.. CT chest was performed earlier this year a nd nodules are stable and f/u CT in 1 year. He has rheumatoid arthritis and following with Dr. Pancho MACIAS. 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 He was hospitalized several times with last episode in grade school. He has not required steroids since childhood. No night symptoms and no decrease in exercise tolerance. He reports some itchy, watery eyes, sneezing and congestion. Above symptoms flare while outside spring and fall season. No history of recurrent sinusitis. Today, he reports no fevers, chills, night sweats or other constitutional symptoms. * ROS: A LLERGY: runny nose N o. s cratchy throat N o. i tchy eyes Y es. e ar fullness N o. s inus congestion Y es. S PECIAL SENSES: cataracts N o. g laucoma N o. l oss of hearing?No. i tching in ears N o. r inging in ears N o. l oss of balance N o.?loss of smell N o. d ry eyes N o. e xcessive tearing N o. i tching eyes Yes. l oss of taste N o. c onjunctivitis N o. e ar infections N o. C ONSTITUTIONAL: weight gain N o. l oss of appetite N o. f ever?No. w eakness N o. w eight loss N o. f atigue Y es. n ight sweats?No. E NT: cold N o. c ough N o. e pistaxis N o. h earing loss N o. c hange in voice N o. s ore throat N o. r inging in ears?No. s inus pain N o. R ESPIRATORY: shortness of breath Y es. c hest pain Y es. c hest congestion N o. c ough Y es. O PHTHALMOLOGY: diminished vision N o. e ye irritation N o. d rainage from eyes N o. b lurring of vision N o. s easonal eye sx N o. i tching Y es. s ensitivity to light Y es. d ischarge N o. w atering Y es. s welling of the eyelids N o. r edness Y es. E NDOCRINOLOGY: fatigue Y es. p olydipsia N o. p olyuria N o. w eight loss N o. s leep disturbance Y es. c old intolerance N o. h eat intolerance N o. d iabetes N o. C ARDIOLOGY: chest pain N o. p alpitations Y es. l eg edema?No. d izziness N o. s hortness of breath Y es. G ASTROENTEROLOGY: dysphagia N o. a bdominal pain N o. n ausea?No. v omiting N o. c onstipation N o. d iarrhea N o. b lood in stool?No. i ndigestion Y es. U ROLOGY: difficulty urinating Y es. b lood in urine N o.?frequent urination N o. u rinary incontinence N o. r ecurrent UTI N o. ? D ERMATOLOGY: rash N o. m ole Y es. l umps N o. d ry or sensitive skin Y es. h marnie (urticaria) N o. a cne N o. s kin cancer N o. N EUROLOGY: headache Y es. t ingling numbness N o. s eizures N o. i nsomnia N o. m rey loss N o. d izziness N o. g ait abnormality Y es. M USCULOSKELETAL: joint swelling N o. j oint pain N o. l eg cramps N o. j oint stiffness N o. s ciatica Y es. o steoporosis N o. f racture N o. c arpal tunnel N o. g out N o. P SYCHOLOGY: high stress level Y es. d epression Y es. s leep disturbances Y es. s uicidal ideation N o. e ating disorder N o. m ental or physical abuse N o. a nxiety Y es. M ANUJ REPRODUCTIVE: difficulty with erection N o. d iminished sexual drive?No. p enile discharge N o. i nfertility N o. * Medical History: * Surgical History: L 5/S1 04/21/1997Fusion to C4-C7 holecystectomy 03/2024 * Hospitalization/Major Diagno stic Procedure: D enies Past Hospitalization * Family History: F ather: alive. M other: alive, diagnosed with Cancer, Diabetes mellitus type I, Hypertension. 3 sister(s) - healthy. 2 son(s) , 1 daughter(s) - healthy. . * Social History: M arital Status What is your marital status? m celioied Yvette cage Do you have children? Y es Number of children: 3 A lcohol Screening Do you ever drink alcoholic beverages? N o S moking Have you ever smoked tobacco: c urrent smoker Additional Findings: Tobacco User L ight cigarette smoker ((1-9 cigs/day) How old were you when you started smoking? 1 5 How often do you smoke cigarettes? s ome days - but not every day How soon after you wake up do you smoke your first cigarette??31 - 60 minutes How many cigarettes do you smoke per day? 6 to 10 Are you interested in quitting? Y es - ready to quit Are you a : l ight tobacco smoker S moking Smart Form Are you a: f ormer smoker How long it has been since you last smoked? 1 -5 years R ecreational drug use Have you ever used recreational drugs? N o D etails on consumption of certain products? Do you regularly consume products with aspartame; Equal or NutraSweet? Y es Do you regularly consume products with artificial coloring??Yes Have you ever noticed worsening of your rash with these food items? N o E xercise What kind(s) of exercise do you perform regularly? w alking How often do you perform this exercise? w eekly A re any of the following personal care products containing fragrance, dye or preservatives used regularly? Shampoo: Y es Conditioner: N o Soap: Y es Laundry Detergent: Y es Fabric Softener: Y es Deodorant: Y es Perfume, cologne, after shave: Y es Air freshners or other scented products: Y es Hair coloring dyes or rinses: Y es Other: N o O ccupation Are you currenly employed? 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 number of years?4 Do you believe that your current or previous occupation has any bearing on your illness? N o How much work have you missed due to breathing difficulty within the past year? 1 or 2 days Do you have any pending or planned legal action against your current or former employer which pertains to your medical illness? N o Do you anticipate that your evaluation will be used in any legal action against your current employer or former employer? 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 Y es Are you currently a student? N o E nvironmental History Living environment: p rivate home Where is the home located? r ural Age of home: 2 4 How long have you lived there? 0 -1 years How many people live in the home? 4 H ome description Basement: Y es Any water damage in basement? N o Smokers in the home? N o Smokers outside the home? Y es Air Conditioning? Y es Central Air? Y es Forced air heating? Y es Gas or electric? g as Fireplace? N o Wood burning stove? N o Do you vacuum the home? Y es Air purification systems? N o Pillow and mattress dust-proof encasings? N o Do you use a humidifier? N o Do you own any pets? Y es What kind(s)? (click all that apply) d og Where do your pets sleep? o ther room in home Fabric softeners used? Y es Plants in the home? Y es How many? 4 Where are they kept? k itchen Is there carpeting in your bedroom? Y es Age of carpet? 1 Do you have [id number] carpeting? N o What is the age of your mattress (years)? 1 What material(s) are used to manufacture your bedding and pillow? n atural fiber (e.g. cotton) What is the age of your pillow (years)? 1 What material are your bedding items made of? s ynthetic Do you sleep with quilts or blankets or a duvet? Y es What material? n atural fiber (e.g. cotton) How many dogs? 2 T obacco Control (Standard) Tobacco use: N onsmoker * Medications: T akingSemaglutide 3 MG Tablet as directed Orally Potassium 99 MG Tablet 1 tablet Orally Once a day Ferrous Sulfate Calcium-Magnesium PAMELA 24 HOUR ALLERGY 180 mg tablet 1 tab(s) orally once a day SYMBICORT 160 mcg-4.5 mcg/inh aerosol 2 puff(s) inhaled 2 times a day SINGULAIR 10 mg tablet 1 tab(s) orally once a day ROPINIROLE 0.5 mg tablet 1 tab(s) orally 3 times a day , Notes to Pharmacist: takes twice a dayEZETIMIBE 10 mg tablet 1 tab(s) orally once a day LANSOPRAZOLE 30 mg delayed release capsule 1 cap(s) orally once a day LIVALO 1 mg tablet 1 tab(s) orally once a day CELEXA 20 mg tablet 1 tab(s) orally once a day XANAX 0.5 mg tablet 1 tab(s) orally 3 times a day , Notes to Pharmacist: takes prnBUSPIRONE 15 mg tablet 1 tab(s) orally 2 times a day LEFLUNOMIDE 20 mg tablet 1 tab(s) orally PROAIR HFA 90 MCG/INH AEROSOL 2 PUFF(S) INHALED 4 TIMES A DAY , Notes to Pharmacist: *Please review for potential replacement for e-prescription and drug interaction check*rOPINIRole HCl 0.5 MG Tablet 1 tab(s) orally 3 times a day , Notes to Pharmacist: takes twice a dayEzetimibe 10 MG Tablet 1 tab(s) orally once a day Lansoprazole 30 MG Capsule Delayed Release 1 cap(s) orally once a day Livalo 1 MG Tablet 1 tab(s) orally once a day CeleXA 20 MG Tablet 1 tab(s) orally once a day Leflunomide 20 MG Tablet 1 tab(s) orally Taking Semaglutide 3 MG Tablet as directed Orally Taking Potassium 99 MG Tablet 1 tablet Orally Once a day Taking Ferrous Sulfate Taking Calcium- Magnesium Taking PAMELA 24 HOUR ALLERGY 180 mg tablet 1 tab(s) orally once a day Taking SYMBICORT 160 mcg-4.5 mcg/inh aerosol 2 puff(s) inhaled 2 times a day Taking SINGULAIR 10 mg tablet 1 tab(s) orally once a day Taking ROPINIROLE 0.5 mg tablet 1 tab(s) orally 3 times a day , Notes to Pharmacist: takes twice a dayTaking EZETIMIBE 10 mg tablet 1 tab(s) orally once a day Taking LANSOPRAZOLE 30 mg delayed release capsule 1 cap(s) orally once a day Taking LIVALO 1 mg tablet 1 tab(s) orally once a day Taking CELEXA 20 mg tablet 1 tab(s) orally once a day Taking XANAX 0.5 mg tablet 1 tab(s) orally 3 times a day , Notes to Pharmacist: takes prnTaking BUSPIRONE 15 mg tablet 1 tab(s) orally 2 times a day Taking LEFLUNOMIDE 20 mg tablet 1 tab(s) orally Taking PROAIR HFA 90 MCG/INH AEROSOL 2 PUFF(S) INHALED 4 TIMES A DAY , Notes to Pharmacist: *Please review for potential replacement for e-prescription and drug interaction check*Taking rOPINIRole HCl 0.5 MG Tablet 1 tab(s) orally 3 times a day , Notes to Pharmacist: takes twice a dayTaking Ezetimibe 10 MG Tablet 1 tab(s) orally once a day Taking Lansoprazole 30 MG Capsule Delayed Release 1 cap(s) orally once a day Taking Livalo 1 MG Tablet 1 tab(s) orally once a day Taking CeleXA 20 MG Tablet 1 tab(s) orally once a day Taking Leflunomide 20 MG Tablet 1 tab(s) orally Not-Taking/PRNNASAL WASHES N/A 1 QUART OF STERILIZED TAP WATER OR DISTILLED WATER, 1 TSP NACL, 1 PINCH OF BAKING SODA DIRECTED INTRANASALLY NEEDED , Notes to Pharmacist: *Please review for potential replacement for e-prescription and drug interaction check*NASACORT ALLERGY 24HR 55 mcg/inh spray 2 spray(s) intranasally once a day Nasacort Allergy 24HR 55 MCG/ACT Aerosol 2 spray(s) intranasally once a day Not-Taking/PRN NASAL WASHES N/A 1 QUART OF STERILIZED TAP WATER OR DISTILLED WATER, 1 TSP NACL, 1 PINCH OF BAKING SODA DIRECTED INTRANASALLY NEEDED , Notes to Pharmacist: *Please review for potential replacement for e-prescription and drug interaction check*Not-Taking/PRN NASACORT ALLERGY 24HR 55 mcg/inh spray 2 spray(s) intranasally once a day Not-Taking/PRN Nasacort Allergy 24HR 55 MCG/ACT Aerosol 2 spray(s) intranasally once a day DiscontinuedSINGULAIR 10 mg tablet 1 tab(s) orally once a day Pamela Allergy 180 MG Tablet 1 tab(s) orally once a day Symbicort 160-4.5 MCG/ACT Aerosol 2 puff(s) inhaled 2 times a day Singulair 10 MG Tablet 1 tab(s) orally once a day Xanax 0.5 MG Tablet 1 tab(s) orally 3 times a day , Notes to Pharmacist: takes prnbusPIRone HCl 15 MG Tablet 1 tab(s) orally 2 times a day Singulair 10 MG Tablet 1 tab(s) orally once a day Singulair 10 MG Tablet 1 tablet Orally Once a day Medication List reviewed and reconciled with the patientDiscontinued SINGULAIR 10 mg tablet 1 tab(s) orally once a day Discontinued Pamela Allergy 180 MG Tablet 1 tab(s) orally once a day Discontinued Symbicort 160-4.5 MCG/ACT Aerosol 2 puff(s) inhaled 2 times a day Discontinued Singulair 10 MG Tablet 1 tab(s) orally once a day Discontinued Xanax 0.5 MG Tablet 1 tab(s) orally 3 times a day , Notes to Pharmacist: takes prnDiscontinued busPIRone HCl 15 MG Tablet 1 tab(s) orally 2 times a day Discontinued Singulair 10 MG Tablet 1 tab(s) orally once a day Discontinued Singulair 10 MG Tablet 1 tablet Orally Once a day Medication List reviewed and reconciled with the patient * Allergies: N .K.D.A.no[Allergies Verified] Objective: * Vitals: B P:146/89mm Hg, HR:82/min, Pulse Oximetry:99%, ACT:24, Ht: 69 in, Wt: 182.4 lbs, BMI:26.93Index. * Examination: G eneral examination: General appearance: p leasant, well-developed, well-nourished. HEENT: c onjunctiva are clear bilaterally, no tenderness to palpation of the sinuses, TM's without evidence of acute infection, turbinates 2+ swollen and pale inferiorly bilaterally, clear rhinorrhea is present, no polyps noted, no septal perforation, posterior oropharynx is clear, no exudates, no tongue swelling, and uvula is midline. Oral cavity: n ormal, no lesions. Neck, thyroid : s upple, non-tender, no anterior cervical lymphadenopathy. Breasts : n ot performed. Heart: R RR, S1-S2, no murmurs, no rubs, no gallops. Lungs: c lear to auscultation and percussion in all lung chappell, no wheezes or crackles. Neurologic exam: u nremarkable. Skin: e rythematous, dry patches on lower extremities, lower back with erythematous, raised areas several centimeters in size. . Peripheral pulses: n ormal (2+) bilaterally. Back: n ormal. Extremities: n ormal ROM, no clubbing, no cyanosis, no edema. Genitalia: n ot performed. Influenza Vaccine not administered R stephany: P atient Reason Assessment: * Assessment: 1. D ermatitis, unspecified - L30.9 (Primary) 2 . M oderate persistent asthma, uncomplicated - J45.40 3 . A llergic rhinitis due to pollen - J30.1 ? 4 . A llergic rhinitis due to animal (cat) (dog) hair and dander - J30.81 5. O ther allergic rhinitis - J30.89 6 . O ther chronic allergic conjunctivitis - H10.45 Plan: * Treatment: 2. M oderate persistent asthma, uncomplicated Continue SYMBICORT aerosol, 160 mcg-4.5 mcg/inh, 2 puff(s), inhaled, 2 times a day; C ontinue PROAIR HFA aerosol, 90 mcg/inh, 2 puff(s), inhaled, 4 times a day; C ontinue SINGULAIR tablet, 10 mg, 1 tab(s), orally, once a day, 90 days, 90 Tablet, Refills 3. Notes:Moderate persistent asthma which appears under good control with Symbicort 160/4.5 mcg and Singulair. He is also following with Dr. Wilson for pulmonary nodules. CT to be repeated in 1 year. Nodules currently are stable. Spirometry at last check showed possible restriction and consistent with spirometry from 2020. Labs 2-2017 showed IgE 2736 and positive ImmunoCAPs to aeroallergens. ? 3. A llergic rhinitis due to pollen Continue NASAL WASHES 1 quart of sterilized tap water or distilled water, 1 tsp NaCl, 1 pinch of baking soda, N/A, as directed, intranasally, as needed, 30, QS, Refills PRN. Notes:Glen clearly suffers from atopic disease based upon our skin testing and history. Accordingly, we have introduced a new, aggressive medication regimen, discussed nasal washes and allergy-specific avoidance measures. We also discussed adjunctive therapies including subcutaneous, specific allergen immunotherapy as relates to the treatment and prevention of atopic disease. He is not interested in immunotherapy at this time. 4. O ther chronic allergic conjunctivitis Notes:Given ocular signs and symptoms I encouraged allergy avoidance measures and meds as above. If symptoms persist, consider adding additional medications including intraocular antihistamine/mast cell stabilizer, PRN * Procedure Codes: [id number] MEASURE BLOOD OXYGEN [id number] PT-FOCUSED HLTH RISK ASSMT * Preventive Medicine: Counseling: D iet a s tolerated. E xercise C ontinue activity as usual. M edication instruction: W atch for side effects of prescribed medications. E ducation: O ur staff spent an additional 30 minutes in direct contact with the patient educating them on their current diagnoses and proper treatment and prevention of symptoms and the proper use of medications. E ducation 2: O ur staff discussed the appropriate allergen avoidance measures and medication utilization including upper airway hygiene with daily nasal washes given the patient's clinical status and diagnoses. P atient education material sent to portal? Y es C are goal follow up plan BMI management provided Y es Above Normal BMI Follow-up D ietary management education, guidance, and counseling * Follow Up: 3 Weeks * Billing Information: * Visit Code: 77490 Office Visit, Est Pt., Level 4. Modifiers: 25 * Procedure Codes: 61251 MEASURE BLOOD OXYGEN LEVEL. 82275 PT-FOCUSED HLTH RISK ASSMT. * Sign off status: Completed true * Provider: Tino Mcghee MD Date: Generated for Jerod burns/Katt/Hetal on: 0 02/27/2025 12:40 AM CDT History and Physical Notes * HPI (History of Present Illness) Category Sub-Category Detail Notes Category Not es *Introduction I had the pleasure of seeing Glen Demarco, a 53 year old with RA, ARC, SONYA on CPAP, anxiety disorder, RA and asthma presenting for f/u evaluation of rhinitis. He was last evaluated 04-03-2024. Rash started 08-03-2024 with erythematous, dry patches on lower extremities. Rash has since spread to his trunk and upper extremities. He was given IM steroids by Dr. Reilly's office with some improvement, but has not resolved. He has been receiving Wegovy for about 10 weeks. No exposure to echeverria or poison ricky. He started using a tanning bed at his home. He stopped leflunomide last week to see if rash improved. He is applying Cortisone 10 and calamine lotion. He is taking Singulair, Zyrtec 10 mg and Benadryl TID for itching. Asthma is under good control with Symbicort. He is not requiring albuterol. He follows with Dr. Wilson for pulmonary nodules.. CT chest was performed earlier this year and nodules are stable and f/u CT in 1 year. He has rheumatoid arthritis and following with Dr. Deleon at [facility]. 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 He was hospitalized several times with last episode in grade school. He has not required steroids since childhood. No night symptoms and no decrease in exercise tolerance. He reports some itchy, watery eyes, sneezing and congestion. Above symptoms flare while outside spring and fall season. No history of recurrent sinusitis. Today, he reports no fevers, chills, night sweats or other constitutional symptoms *Allergic Rhinoconjunctivitis *Asthma *Infections *Other Rash and Contact Dermatitis *Atopic dermatitis *Urticaria *Medication allergy *Stinging Insects *Prior Evaluations and Treatments *Food allergy *Eosinophilic GI *Angioedema Examination Category Sub-Category Detail Notes Category Not es General examination HEENT: conjunctiva are clear bilaterally, no tenderness to palpation of the sinuses, TM's without evidence of acute infection, turbinates 2+ swollen and pale inferiorly bilaterally, clear rhinorrhea is present, no polyps noted, no septal perforation, posterior oropharynx is clear, no exudates, no tongue swelling, and uvula is midline Neck, thyroid : supple, non-tender, no anterior cervical lymphadenopathy Heart: RRR, S1-S2, no murmu rs, no rubs, no gallops Lungs: clear to auscultatio n and percussion in all lung chappell, no wheezes or crackles Abdomen: Extremities: normal ROM, no clubb ing, no cyanosis, no edema General appearance: pleasant, well-devel oped, well-nourished Skin: erythematous, dry pa tches on lower extremities, lower back with erythematous, raised areas several centimeters in size. Neurologic exam: unremarkable Oral cavity: normal, no lesions Breasts : not performed Peripheral pulses: normal (2+) bilatera lly Back: normal Genitalia: not performed Influenza Vaccine not administered Reason:: Rebecca ent Reason
--- OUTSIDE RECORDS SUMMARY | 2025-02-27 00:40 | XMS_ITS ---
Author Organization [facility] Address [address] [place] [address] Care Team Providers Care Routing Machine Operator Name Role Phone Melba MEJIA, David Primary Care Provider UnavailDione Moser Unavailable [phone] REASON FOR VISIT New Rash, COPD/Asthma follow-up - history of nodules and following with Dr. Wilson and rheumatology for RA Medications Medication SIG (Take, Route, Frequency, Duration) Notes Start Date End Date Status Montelukast Sodium 10 MG 1 tablet Orally Once a day for 30 days Active Famotidine 20 MG 1 tablet Orally Twice a day for 30 days Active Cetirizine HCl 10 MG 1 tablet Orally Twice a day for 30 days Active Triamcinolone Acetonide 0.1 % 1 application Externally Twice a day for 30 days Active SINGULAIR 10 mg 1 tab(s) orally once a day for 90 days Active Nasacort Allergy 24HR 55 MCG/ACT 2 spray(s) intranasally once a day for 30 day(s) Not-Taking NASACORT ALLERGY 24HR 55 mcg/inh 2 spray(s) intranasally once a day for 30 day(s) Not-Taking PROAIR HFA 90 mcg/inh 2 puff(s) inhaled 4 times a day Active SYMBICORT 160 mcg-4.5 mcg/inh 2 puff(s) inhaled 2 times a day Active NASAL WASHES N/A as directed intranasally as needed for 30 Active Leflunomide 20 MG 1 tab(s) orally Active CeleXA 20 MG 1 tab(s) orally once a day for 30 day(s) Active Livalo 1 MG 1 tab(s) orally once a day for 30 day(s) Active Lansoprazole 30 MG 1 cap(s) orally once a day for 30 day(s) Active Ezetimibe 10 MG 1 tab(s) orally once a day for 30 day(s) Active LEFLUNOMIDE 20 mg 1 tab(s) orally Active BUSPIRONE 15 mg 1 tab(s) orally 2 times a day for 30 day(s) Active XANAX 0.5 mg 1 tab(s) orally 3 times a day takes prn Active CELEXA 20 mg 1 tab(s) orally once a day for 30 day(s) Active rOPINIRole HCl 0.5 MG 1 tab(s) orally 3 times a day for 30 day(s) takes twice a day Active LIVALO 1 mg 1 tab(s) orally once a day for 30 day(s) Active LANSOPRAZOLE 30 mg 1 cap(s) orally once a day for 30 day(s) Active EZETIMIBE 10 mg 1 tab(s) orally once a day for 30 day(s) Active ROPINIROLE 0.5 mg 1 tab(s) orally 3 times a day for 30 day(s) takes twice a day Active BETTY 24 HOUR ALLERGY 180 mg 1 tab(s) orally once a day Active Potassium 99 MG 1 tablet Orally Once a day Active Semaglutide 3 MG as directed Orally Active Calcium-Magnesium Ac tive Ferrous Sulfate Acti ve Encounters Encounter Location Date Provider Diagnosis [facility] [address] [address] 09/11/2024 Dione Mcghee Moderate persistent asthma, uncomplicated J45.40 ; Dermatitis, unspecified L30.9 ; Allergic rhinitis due to pollen J30.1 ; Allergic rhinitis due to animal (cat) (dog) hair and dander J30.81 ; Other allergic rhinitis J30.89 and Other chronic allergic conjunctivitis H10.45 Assessments Encounter Date Diagnosis (ICD Code) Assessment Notes Treatment Notes Treatment Clinical Notes Section Notes 09/11/2024 Moderate persistent asthma, uncomplicated (ICD-10 - J45.40) [...] IgE 2736 and positive ImmunoCAPs to aeroallergens. 09/11/2024 Dermatitis, unspecified (ICD-10 - L30.9) Unclear cause [...] not think rash is related to Wegovy. 09/11/2024 Allergic rhinitis due to pollen (ICD-10 - [...] not interested in immunotherapy at this time. 09/11/2024 Allergic rhinitis due to animal (cat) (dog) hair and dander (ICD-10 - J30.81) 09/11/2024 Other allergic rhinitis (ICD-10 - J30.89) 09/11/2024 Other chronic allergic conjunctivitis (ICD-10 - H10.45) Given ocular signs and symptoms I encouraged allergy avoidance measures and meds as above. If symptoms persist, consider adding additional medications including intraocular antihistamine/mas t cell stabilizer, PRN 09/11/2024 Other Plan Of Treatment Medication Medication Name Sig Start Date Stop Date Notes Montelukast Sodium 10 MG 1 tablet Orally Once a day for 30 days Famotidine 20 MG 1 tablet Orally Twic e a day for 30 days Cetirizine HCl 10 MG 1 tablet Orally Twi ce a day for 30 days Triamcinolone Acetonide 0.1 % 1 applicat ion Externally Twice a day for 30 days SINGULAIR 10 mg 1 tab(s) orally once a day for 90 days PROAIR HFA 90 mcg/inh 2 puff(s) inhaled 4 times a day SYMBICORT 160 mcg-4.5 mcg/inh 2 puff(s) inhaled 2 times a day NASAL WASHES N/A as directed intranas ally as needed for 30 Treatment Notes Assessment Notes Moderate persistent asthma, [...] to Wegovy. Allergic rhinitis due to pollen Glen clearly suffers from atopic disease based [...] Follow Up: 3 Weeks, Reason: Provider Name:Dione guthrie, 04/02/2025 08:45:00 AM, [address] [facility], [address], [address], Progress Notes * Glen DEMARCODOB: (54 yo M)Acc No.[id number]:09/11/2024 Progress Notes Patient: Glen ZARAGOZA Provider: Tino Mcghee MD :1970 A ge:53 Y S ex:Male Date:09/11/2024 Address:[address] [place] [address] [address], [facility] Pcp:David Reilly MD Subjective: * Chief Complaints: * 1 . New Rash. 2. COPD/Asthma follow-up - history of nodules and following with Dr. Wilson and rheumatology for RA. * HPI: * Introduction: I had the pleasure of seeing Yvette Demarco, a 53 year old with RA, ARC, SONYA on CPAP, anxiety disorder, RA and asthma presenting for f/u evaluation of rhinitis. He was last evaluated 04-03-2024. R celia started 08-03-2024 with erythematous, dry patches on lower extremities. Rash has since spread to his trunk and upper extremities. He was given IM steroids by Dr. Reilly's office with some improvement, but has not resolved. He has been receiving Wegovy for about 10 weeks. No exposure to echeverria or poison ricky.? He started using a tanning bed at his home. He stopped leflunomide last week to see if rash improved. He is applying Cortisone 10 and calamine lotion. He is taking Singulair, Zyrtec 10 mg and Benadryl TID for itching. A sthma is under good control with Symbicort. He is not requiring albuterol. He follows with Dr. Wilson for pulmonary nodules.. CT chest was performed earlier this year a nd nodules are stable and f/u CT in 1 year. He has rheumatoid arthritis and following with Dr. Pancho MACIAS. 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 He was hospitalized several times with last episode in grade school. He has not required steroids since childhood. No night symptoms and no decrease in exercise tolerance. H e reports some itchy, watery eyes, sneezing and congestion. Above symptoms flare while outside spring and fall season. No history of recurrent sinusitis. T ivan, he reports no fevers, chills, night sweats [...] nfertility N o. * Medical History: * Medications: T aking NASAL WASHES N/A 1 quart of sterilized tap water or distilled water, 1 tsp NaCl, 1 pinch of baking soda as directed intranasally as needed , Taking SYMBICORT 160 mcg-4.5 mcg/inh aerosol 2 puff(s) inhaled 2 times a day , Taking PROAIR HFA 90 mcg/inh aerosol 2 puff(s) inhaled 4 times a day , Taking SINGULAIR 10 mg tablet 1 tab(s) orally once a day , Taking Semaglutide 3 MG Tablet as directed Orally , Taking Potassium 99 MG Tablet 1 tablet Orally Once a day , Taking Ferrous Sulfate , Taking Calcium-Magnesium , Taking BETTY 24 HOUR ALLERGY 180 mg tablet 1 tab(s) orally once a day , Taking ROPINIROLE 0.5 mg tablet 1 tab(s) orally 3 times a day , Notes to Pharmacist: takes twice a day, Taking EZETIMIBE 10 mg tablet 1 tab(s) orally once a day , Taking LANSOPRAZOLE 30 mg delayed release capsule 1 cap(s) orally once a day , Taking LIVALO 1 mg tablet 1 tab(s) orally once a day , Taking CELEXA 20 mg tablet 1 tab(s) orally once a day , Taking XANAX 0.5 mg tablet 1 tab(s) orally 3 times a day , Notes to Pharmacist: takes prn, Taking BUSPIRONE 15 mg tablet 1 tab(s) orally 2 times a day , Taking LEFLUNOMIDE 20 mg tablet 1 tab(s) orally , Taking rOPINIRole HCl 0.5 MG Tablet 1 tab(s) orally 3 times a day , Notes to Pharmacist: takes twice a day, Taking Ezetimibe 10 MG Tablet 1 tab(s) orally once a day , Taking Lansoprazole 30 MG Capsule Delayed Release 1 cap(s) orally once a day , Taking Livalo 1 MG Tablet 1 tab(s) orally once a day , Taking CeleXA 20 MG Tablet 1 tab(s) orally once a day , Taking Leflunomide 20 MG Tablet 1 tab(s) orally , Taking Triamcinolone Acetonide 0.1 % Ointment 1 application Externally Twice a day , Taking Cetirizine HCl 10 MG Tablet 1 tablet Orally Twice a day , Taking Famotidine 20 MG Tablet 1 tablet Orally Twice a day , Taking Montelukast Sodium 10 MG Tablet 1 tablet Orally Once a day , Not-Taking/PRN NASACORT ALLERGY 24HR 55 mcg/inh spray 2 spray(s) intranasally once a day , Not-Taking/PRN Nasacort Allergy 24HR 55 MCG/ACT Aerosol 2 spray(s) intranasally once a day Objective: * Vitals: * Examination: G eneral examination: General appearance: [...] Procedure Codes: 9 4760 MEASURE BLOOD OXYGEN LEVEL, 64618 PT-FOCUSED HLTH RISK ASSMT * Preventive Medicine: Counseling: D iet a s tolerated. E xercise C ontinue activity as usual. M edication instruction: W atc for side effects of prescribed medications. E [...] Weeks * Billing Information: * Visit Code: 82983 Office Visit, Est Pt., Level 4. Modifiers: 25 * Procedure Codes: 24924 MEASURE BLOOD OXYGEN LEVEL. 84577 PT-FOCUSED HLTH RISK ASSMT. * Electronic signature of Leesa Mcghee MD on 02/27/2025 at 12:40 AM CDT Sign off status: Pending * Provider: Tino Mcghee MD Date: Generated [...] arthritis and following with Dr. Deleon at [facility]. 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
--- OUTSIDE RECORDS SUMMARY | 2025-02-27 00:40 | XMS_ITS ---
Author Organization [facility] Address [address] [facility] [address] [place] [address] Care Team Providers Care Generator Assembler Name Role Phone Melba MEJIA, David Primary Care Provider ANA Carter [phone] Medications Medication SIG (Take, Route, Fr equency, Duration) Notes Start Date End Date Status rOPINIRole HCl 0.5 MG TAKE 1 TABLET BY M OUTH 1 TO 3 HOURS BEFORE BEDTIME TWICE DAILY for 90 days Active Encounters Encounter Location Date Provider Diagnosis [place] [id number] 12/31/2024 ANA JULIO Plan Of Treatment Medication Medication Name Sig Start Date Stop Date Notes rOPINIRole HCl 0.5 MG TAKE 1 TABLET BY M OUTH 1 TO 3 HOURS BEFORE BEDTIME TWICE DAILY for 90 days Progress Notes * Glen DEMARCODOB: (54 yo M)Acc No.[id number]:12/31/2024 Patient: Huyen NAVEEDJENNIFERGlen WARREN :1970 A ge:54 Y S ex:Male Address:[address] [place] [address] * Refills Refill rOPINIRole HCl Tablet, 0.5 MG, 90, TAKE 1 TABLET BY MOUTH 1 TO 3 HOURS BEFORE BEDTIME TWICE DAILY, 90 days, Refills=3 * true * Date: Generated for Giorgii ng/Fahoraceg/eTransmitting on: 0 02/27/2025 12:40 AM CDT
--- OUTSIDE RECORDS SUMMARY | 2025-02-27 00:40 | XMS_ITS | Patient Health Record ---
Author Organization [facility] Address [address] [place] [address] Care Team Providers Care Farmworker Bulbs Name Role Phone Melba MEJIA, David Primary Care Provider Unavaila Dione Golden Unavailable [phone] [facility], Provider Unavailable Unavailab le Allergies No Known Allergies Results Component Value Reference Range Notes Spirometry Reviewed date: Interpretation:Abnormal Performing Lab: Notes/Report: Abnormal SpiroPreBronchodilator_FVC 3.52 SpiroPostBronchodilator_FEF25_75 0 SpiroPreBronchodilator_FEF25_75 2.46 SpiroPreBronchodilator_FEV1 2.75 SpiroPrecentPredictionPost_FEF25_75 0 SpiroPrecentPredictionPost_FEV1 0 SpiroPrecentPredictionPost_FEV1_OVER_FVC 0 SpiroPrecentPredictionPost_FVC 0 SpiroPrecentPredictionPre_FEF25_75 66 SpiroPrecentPredictionPre_FEV1 72.4 SpiroPrecentPredictionPre_FEV1_OVER_FVC 97.9 SpiroPrecentPredictionPre_FVC 74.1 SpiroPredicted_FEF25_75 3.73 SpiroPreBronchodilator_FEV1_OVER_FVC 78.16 SpiroPreBronchodilator_PEF 6.12 SpiroPostBronchodilator_FVC 0 SpiroPostBronchodilator_FEV1 0 SpiroPostBronchodilator_FEV1_OVER_FVC 0 SpiroPostBronchodilator_PEF 0 SpiroPredicted_FVC 4.75 SpiroPredicted_FEV1 3.8 SpiroPredicted_FEV1_OVER_FVC 79.8 SpiroPredicted_PEF 8.66 Reason For Referral No Information Medications Medication SIG (Take, Route, Frequency, Duration) Notes Start Date End Date Status Potassium 99 MG 1 tablet Orally Once a day Active Semaglutide 3 MG as directed Orally Active Montelukast Sodium 10 MG 1 tablet Orally Once a day for 90 days Active Famotidine 20 MG 1 tablet Orally Twice a day for 30 days Active CELEXA 20 mg 1 tab(s) orally once a day for 30 day(s) Active Cetirizine HCl 10 MG 1 tablet Orally Twice a day for 30 days Active LIVALO 1 mg 1 tab(s) orally once a day for 30 day(s) Active Triamcinolone Acetonide 0.1 % 1 application Externally Twice a day for 30 days Active LANSOPRAZOLE 30 mg 1 cap(s) orally once a day for 30 day(s) Active SINGULAIR 10 mg 1 tab(s) orally once a day for 90 days Active EZETIMIBE 10 mg 1 tab(s) orally once a day for 30 day(s) Active PROAIR HFA 90 mcg/inh 2 puff(s) inhaled 4 times a day Active ROPINIROLE 0.5 mg 1 tab(s) orally 3 times a day for 30 day(s) takes twice a day Active SYMBICORT 160 mcg-4.5 mcg/inh 2 puff(s) inhaled 2 times a day Active BETTY 24 HOUR ALLERGY 180 mg 1 tab(s) orally once a day Active NASAL WASHES N/A as directed intranasally as needed for 30 Active Calcium-Magnesium Ac tive Ferrous Sulfate Acti ve BUSPIRONE 15 mg 1 tab(s) orally 2 times a day for 30 day(s) Active XANAX 0.5 mg 1 tab(s) orally 3 times a day takes prn Active LEFLUNOMIDE 20 mg 1 tab(s) orally Active Nasacort Allergy 24HR 55 MCG/ACT 2 spray(s) intranasally once a day for 30 day(s) Not-Taking NASACORT ALLERGY 24HR 55 mcg/inh 2 spray(s) intranasally once a day for 30 day(s) Not-Taking Leflunomide 20 MG 1 tab(s) orally Active [...] 30 day(s) takes twice a day Active Immunizations Vaccine Route Administration Date Status Comme nts Influenza Unknown 07/19/2018 Refused Influenza Unknown 11/08/2018 Refused Social History Tobacco Use: Social History Observation Description Date Details (start date - stop date) Never Smoker NA - NA Smoking Smart Form: Question Answer Notes Are you a: former smoker How long it has been since you last smoked? 1-5 years Tobacco Control (Standard) Question Answer Notes Tobacco use: Nonsmoker Problems Problem Type SNOMED Code ICD Code Onset Dates Problem Status W/U Status Risk Notes Problem Allergic rhinitis caused by pollen (disorder) (59883044) Allergic rhinitis due to pollen (J30.1) Active confirmed Problem Allergic rhinitis (50178507) Other allergic rhinitis (J30.89) Active confirmed Problem Uncomplicated moderate persistent asthma (272325758) Moderate persistent asthma, uncomplicated (J45.40) Active confirmed Problem Allergic rhinitis caused by animal hair and dander (515281891994627) Allergic rhinitis due to animal (cat) (dog) hair and dander (J30.81) Active confirmed Problem Chronic allergic conjunctivitis (30014464) Other chronic allergic conjunctivitis (H10.45) Active confirmed Vital Signs Respiratory Rate 18 /min 04/03/2024 Oximetry 99 % 08/21/2024 Blood pressure diastolic 89 mm Hg 08/21/2024 Height 69 in 08/21/2024 Blood pressure systolic 146 mm Hg 08/21/2024 Weight 182.4 lbs 08/21/2024 BMI 26.93 kg/m2 08/21/2024 Encounters Encounter Location Date Provider Diagnosis [address] [address] 05/05/2024 Provider [facility] Allergic rhinitis due to pollen J30.1 and Moderate persistent asthma, uncomplicated J45.40 [facility] [address] [facility] [address] [place] [address] 04/03/2024 Dione Mcghee Moderate persistent asthma, uncomplicated J45.40 ; Allergic rhinitis due to pollen J30.1 ; Allergic rhinitis due to animal (cat) (dog) hair and dander J30.81 ; Other allergic rhinitis J30.89 and Other chronic allergic conjunctivitis H10.45 [facility] [address] [place] [address] 08/21/2024 Dione Mcghee Moderate persistent asthma, uncomplicated J45.40 ; Dermatitis, unspecified L30.9 ; Allergic rhinitis due to pollen J30.1 ; Allergic rhinitis due to animal (cat) (dog) hair and dander J30.81 ; Other allergic rhinitis J30.89 and Other chronic allergic conjunctivitis H10.[address] [address] 03/14/2024 Dione Mcghee Moderate persistent asthma, uncomplicated J45.[address] [address] 06/12/2024 Dione Mcghee [address] [address] 12/26/2024 Dione Mcghee Dermatitis, unspecified L30.9 Assessments Encounter Date Diagnosis (ICD Code) Assessment Notes Treatment Notes Treatment Clinical Notes Section Notes 03/14/2024 Moderate persistent asthma, uncomplicated (ICD-10 - J45.40) 04/03/2024 Allergic rhinitis due to pollen (ICD-10 - [...] not interested in immunotherapy at this time. 04/03/2024 Moderate persistent asthma, uncomplicated (ICD-10 - J45.40) Moderate persistent asthma which appears under good control with Symbicort 160/4.5 mcg and Singulair. ACT 27. He is also following with Dr. Wilson for pulmonary nodules. CT to be repeated in 1 year. Nodules currently are stable. Spirometry today showed possible restriction and consistent with spirometry from 2020. Labs 2-2017 showed IgE 2736 and positive ImmunoCAPs to aeroallergens. 05/05/2024 Allergic rhinitis due to pollen (ICD-10 - J30.1) 05/05/2024 Moderate persistent asthma, uncomplicated (ICD-10 - J45.40) 08/21/2024 Moderate persistent asthma, uncomplicated (ICD-10 - [...] not think rash is related to Wegovy. 12/26/2024 Dermatitis, unspecified (ICD-10 - L30.9) 08/21/2024 Allergic rhinitis due to pollen (ICD-10 [...] not interested in immunotherapy at this time. 04/03/2024 Allergic rhinitis due to animal (cat) (dog) hair and dander (ICD-10 - J30.81) 04/03/2024 Other allergic rhinitis (ICD-10 - J30.89) 08/21/2024 Allergic rhinitis due to animal (cat) (dog) hair and dander (ICD-10 - J30.81) 08/21/2024 Other allergic rhinitis (ICD-10 - J30.89) 04/03/2024 Other chronic allergic conjunctivitis (ICD-10 - H10.45) Given ocular signs and symptoms I encouraged allergy avoidance measures and meds as above. If symptoms persist, consider adding additional medications including intraocular antihistamine/mas t cell stabilizer, PRN 08/21/2024 Other chronic allergic conjunctivitis (ICD-10 - H10.45) Given ocular signs and symptoms I encouraged allergy avoidance measures and meds as above. If symptoms persist, consider adding additional medications including intraocular antihistamine/mas t cell stabilizer, PRN 09/11/2024 Other 04/03/2024 Other 08/21/2024 Other Plan Of Treatment Next Appt Details Provider Name:Dione guthrie, 04/02/2025 08:45:00 AM, [address] [facility], [facility] [address], [address], Insurance Providers Payer Name Payer Address Payer Phone Subscriber Number Group Number Insured Name Patient Relationship to Insured Coverage Start Date Coverage End Date [employer] POS II [address] [place] [address] [id number] Glen Demarco Self - patient is the insured Medical (General) History Medical History History ICD Code Moderate persistent asthma, uncomplicate d Hyperlipidemia, unspecified Anxiety disorder, unspecified Surgical History Surgery Date(Month/Year) L5/S1 04/21/1997 Fusion to C4-C7 11/2022 Cholecystectomy 03/2024
--- OUTSIDE RECORDS SUMMARY | 2025-02-27 00:40 | XMS_ITS ---
Author Organization [facility] Address [address] [facility] [place] [address] Care Team Providers Care Inspector Handbag Frames Name Role Phone Melba MEJIA, David Primary Care Provider ANA Carter [phone] REASON FOR VISIT ropinirole refill Medications Medication SIG (Take, Route, Fr equency, Duration) Notes Start Date End Date Status rOPINIRole HCl 0.5 MG TAKE 1 TABLET BY M OUTH 1 TO 3 HOURS BEFORE BEDTIME TWICE DAILY for 90 days Active Encounters Encounter Location Date Provider Diagnosis [address] [id number] 12/28/2024 ANA JULIO Plan Of Treatment Medication Medication Name Sig Start Date Stop Date Notes rOPINIRole HCl 0.5 MG TAKE 1 TABLET BY M OUTH 1 TO 3 HOURS BEFORE BEDTIME TWICE DAILY for 90 days Progress Notes * Glen DEMARCODOB: (54 yo M)Acc No.[id number]:12/28/2024 Patient: Huyen NAVEEDMARKIEGlen :1970 A ge:54 Y S ex:Male Address:[address] [place] [address] * Refills Refill rOPINIRole HCl Tablet, 0.5 MG, 90, TAKE 1 TABLET BY MOUTH 1 TO 3 HOURS BEFORE BEDTIME TWICE DAILY, 90 days, Refills=3 * true * Date: Generated for Printi ng/Fahoraceg/eTransmitting on: 0 02/27/2025 12:39 AM CDT
--- OUTSIDE RECORDS SUMMARY | 2025-02-27 00:41 | XMS_ITS | Encounter Summary ---
Author Organization [facility] Healthcare Address [address] [place] [address] Care Team Providers Care Acid Retort Operator Name Role Phone David Reilly MD Primary Care Provider [phone] Reason for Referral * Diagnostic Imaging (Routine) - Closed Specialty Diagnoses / Procedures Referred By Contac t Referred To Contact Diagnoses Neck pain Procedures XR Spine Cervical 2 or 3 Views Devora Gusman NP [address] [facility] [address] [place] [address] Phone: tel: fax: [facility] Referral ID Status Reason Start Date Expiration Date Visits Re quested Visits Authorized [id number] Closed 02/25/2025 03/27/2026 1 1 Reason for Visit * Diagnostic Imaging (Routine) - Closed Specialty Diagnoses / Procedures Referred By Contac t Referred To Contact Diagnoses Neck pain Procedures XR Spine Cervical 2 or 3 Views Devora Gusman, DERRICK [address] [facility] [address] [address] Phone: tel: fax: [facility] Referral ID Status Reason Start Date Expiration Date Visits Re quested Visits Authorized [id number] Closed 02/25/2025 03/27/2026 1 1 Encounter Details Date Type Department Care Team (Latest Contact Info) Description 02/25/2025 11:42 AM CDT - 02/25/2025 11:59 PM CDT Hospital Encounter [facility] Radiology at [facility] [address] [place] [address] Neck pain Discharge Disposition: Discharge to home or self care Social History Tobacco Use Types Packs/Day Years Used Date Smoking Tobacco: Former Cigarettes Q uit: 2018 Smokeless Tobacco: Never Sex and Gender Information Value Date Recorded Sex Assigned at Not on file Legal Sex Male 12:09 PM RN ENDOCRINOLOGY Gender Identity Male 01/13/2021 2:50 PM RN ENDOCRINOLOGY Sexual Orientation Bermeo 01/13/2021 2: 50 PM RN ENDOCRINOLOGY documented as of this encounter Medications at Time of Discharge albuterol HFA (PROVENTIL HFA,VENTOLIN HFA,PROAIR HFA) 90 mcg/actuation inhaler INHALE 1 PUFF BY MOUTH FOUR TIMES DAILY NEEDED FOR SHORTNESS OF BREATH 08/28/2021 ALPRAZolam (XANAX) 0.5 mg tablet aspirin 81 mg enteric coated tablet Take 1 tablet (81 mg total) by mouth every morning 02/04/2021 busPIRone (BUSPAR) 15 mg tablet Take 1 tablet (15 mg total) by mouth 2 (two) times a day 01/29/2021 cetirizine (ZyrTEC) 10 mg tablet every 12 hours 08/21/2024 citalopram (CeleXA) 20 mg tablet TAKE 1/2 TABLET BY MOUTH DAILY FOR 7 DAYS THEN INCREASE TO 1 TABLET DAILY 09/23/2021 ezetimibe (ZETIA) 10 mg tablet Take 1 tablet (10 mg total) by mouth daily 12/18/2020 famotidine (PEPCID) 20 mg tablet every 12 hours 08/21/2024 fexofenadine (Pamela Allergy) 180 mg tablet daily iron 18 mg tablet Take by mouth lansoprazole (PREVACID) 30 mg capsule Take 1 capsule (30 mg total) by mouth daily 02/01/2021 leflunomide (ARAVA) 20 mg tabletIndication s:Rheumatoid arthritis involving multiple sites with positive rheumatoid factor (HCC) Take 1 tablet (20 mg total) by mouth daily 30 tablet 6 02/25/2025 Livalo 2 mg tablet Take 1 tablet (2 mg total) by mouth daily 07/20/2022 magnesium 30 mg tablet Take 1 tablet (30 mg total) by mouth 2 (two) times a day With zinc and calcium montelukast (SINGULAIR) 10 mg tablet Take 1 tablet (10 mg total) by mouth daily 01/29/2021 potassium chloride ER 10 mEq CR tablet Take 1 tablet/capsule (10 mEq total) by mouth daily rOPINIRole (REQUIP) 0.5 mg tablet Take 1 tablet (0.5 mg total) by mouth 2 (two) times a day Symbicort 160-4.5 mcg/actuation inhaler INHALE 2 PUFFS BY MOUTH EVERY 12 HOURS 01/29/2021 triamcinolone (KENALOG) 0.1 % ointment 1 Application every 12 hours 08/21/2024 triamcinolone (Nasacort) 55 mcg nasal inhaler daily documented as of this encounter Discharge Disposition Disposition Code Departure Means Destination Discharge to home or self care documented in this encounter Plan of Treatment Not on file documented as of this encounter Procedures Procedure Name Priority Date/Time Associated Diagnosis Comments XR SPINE CERVICAL 2 OR 3 VIEWS Schedule Routine, Read Routine (OP Routine) 02/25/2025 11:46 AM CDT Neck pain documented in this encounter Results * XR Spine Cervical 2 or 3 Views (02/25/2025 11:46 AM CDT) Anatomical Region Laterality Modality Spine N/A Computed Radiogr aphy 02/25/2025 1:21 PM CDT Impressions 02/25/2025 1:21 PM CDT 1. Anterior discectomy and instrumented fusion at C4-C7. 2. Moderate degenerative disc disease at C7-T1. Electronically signed by: Jeremiah Bonilla MD Narrative 02/25/2025 1:21 PM CDT EXAMINATION: XR SPINE CERVICAL 2 OR 3 VIEWS HISTORY: Neck pain, cervical spondylosis FINDINGS: No comparison. Postsurgical changes of anterior discectomy and instrumented fusion at C4-C7. Minimal prevertebral soft tissue swelling. No fracture. Mild anterolisthesis of C7 on T1. Moderate degenerative disc disease at this level. Mild degenerative disc disease at C3-C4. No osseous central canal stenosis. Minimal cervical dextrocurvature. Procedure Note Jeremiah Bonilla MD - 02/25/2025 EXAMINATION: XR SPINE CERVICAL 2 OR 3 VIEWS HISTORY: Neck pain, cervical spondylosis FINDINGS: No comparison. Postsurgical changes of anterior discectomy and instrumented fusion at C4-C7. Minimal prevertebral soft tissue swelling. No fracture. Mild anterolisthesis of C7 on T1. Moderate degenerative disc disease at this level. Mild degenerative disc disease at C3-C4. No osseous central canal stenosis. Minimal cervical dextrocurvature. IMPRESSION: 1. Anterior discectomy and instrumented fusion at C4-C7. 2. Moderate degenerative disc disease at C7-T1. Electronically signed by: Jeremiah Bonilla MD Devora Gusman PUNCHBOARD FILLING MACHINE OPERATOR IMG XR PROCEDURES Final Re sult documented in this encounter Visit Diagnoses Diagnosis Neck pain Cervicalgia documented in this encounter Care Teams Acid Retort Operator Relationship Specialty Start Date End Date David Reilly MD PCP - General Family Medicine 01/06/21 documented as of this encounter
--- OUTSIDE RECORDS SUMMARY | 2025-02-27 00:41 | XMS_ITS | Continuity of Care Document ---
Author Organization [facility] Address [address] [place] [address] Phone Care Team Providers Care Biomathematician Name Role Phone Ct White Unavailable Unavailabl e Allergies, Adverse Reactions, Alerts Substance Reaction Status Criticality No Known Allergies Active No Inform ation Medications Medication Instructions Dosage Effective Dates (start - stop) Status Comments buspirone 15 mg tablet - Act reno citalopram 20 mg tablet - Active montelukast 10 mg tablet - Active Wegovy 0.5 mg/0.5 mL subcutaneous pen injector INJECT 0.5MG UNDER THE SKIN EVERY WEEK - Active ezetimibe 10 mg tablet - Act reno hydrocodone 5 mg-acetaminophen 325 mg tablet TAKE 1 TABLET BY MOUTH EVERY 4 HOURS NEEDED FOR PAIN - Active lansoprazole 30 mg capsule,delayed release - Active Livalo 2 mg tablet - Active ropinirole 0.5 mg tablet TAKE 1 TABLET BY MOUTH TWICE DAILY EVERY NIGHT 1 TO 3 HOURS BEFORE BEDTIME - Active Wegovy 0.25 mg/0.5 mL subcutaneous pen injector - Active alprazolam 0.5 mg tablet TAKE 1 TABLET BY MOUTH DAILY NEEDED FOR ANXIETY - Active leflunomide 20 mg tablet - Active Procedures Procedure Date Kenalog 10mg/mL Inject tndn sheath/lgmnt/gangl cyst Office/outpatient visit,della nicole 2023 BMI Documented Above Normal Limit F/U Pl an Doc Advance Directives Directive Yes / No Effective Date File Name No Information Encounters Encounter Description Practice Location Reason(s) For Visit Diagnoses Date Provider Providers Copied on Encounter [facility], [address] [address], [place], [place], [id number], [phone] [facility] No Information Jeanie Fofana. [address] [facility], [address], [place], [place], [id number] , [place]. tel: [phone] Office/[place]pat ient visit[place], [address] [facility] [address], [place], [place], [id number], [phone] [facility] Left thumb (chief complaint) Trigger thumb, left thumb Jeanie Fofana. [address] [facility], [address], [place], [place], [id number] , [place]. tel: [phone] Family History Family Member Type Diagnosis Age At Onset Mother Problem (finding) Osteoarthritis Mother Problem (finding) Cancer, unknown Sister Problem (finding) Diabetes Mother Problem (finding) Diabetes Immunizations Vaccine Date Status Comments influenza, injectable, quadrivalent, (3 years or older) administered Note: pt refused ; S ource: Source Unspecified Payers Payer name Insurance type Covered green party ID Authoriza tihenry(s) [facility] [id number] Social History Type Description Quantity Date Captured Comments Sex Male Smoking Status No Information Chief Complaint And Reason For Visit No Information Reason For Referral Reason For Referral No Information History Of Present Illness Encounter Date Complaint History Of Prese nt Illness Left thumb Beatrice seen in the office today as a new patient. He presents with left thumb pain, stiffness, and locking. The symptoms started 2 months ago, The symptoms have progressively worsened with time. He does not recall a specific injury. 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 He has a history of rheumatoid arthritis. He presents to the office today for evaluation and treatment of left thumb pain, stiffness, and locking. Functional Status Date Functional Assessmen t No Information Instructions Date Instruction Additional Infor mation No Information Assessments Type Assessment Date No Information Patient Care Teams Name Effective Dates (start - stop) Status Members No Information
--- OUTSIDE RECORDS SUMMARY | 2025-02-27 00:41 | XMS_ITS | Referral Summary ---
Author Organization [facility] Address [address] [place] [address] Care Team Providers Care Switchboard Operator Name Role Phone David Reilly MD Primary Care Provider Encounters Date Type Department Care Team Description 02/26/2025 Telephone [facility] Rheumatology [address] [facility] 2nd [address] [place] [address] Itz Mayes 02/25/2025 11:42 AM CDT - 02/25/2025 11:59 PM CDT Hospital Encounter [facility] Radiology at [facility] [address] [place] [address] Neck pain Discharge Disposition: Discharge to home or self care 02/25/2025 11:20 AM CDT Office Visit [facility] Rheumatology [address] [facility] 2nd [address] [place] [address] Devora Gusman NP Rheumatoid arthritis involving multiple sites with positive rheumatoid factor (HCC) (Primary Dx); High risk medication use; Neck pain from Last 3 Months Allergies No known active allergies Medications ALPRAZolam (XANAX) 0.5 mg tablet Active busPIRone (BUSPAR) 15 mg tablet Take 1 tablet (15 mg total) by mouth 2 (two) times a day Active Symbicort 160-4.5 mcg/actuation inhaler INHALE 2 PUFFS BY MOUTH EVERY 12 HOURS 1 Active montelukast (SINGULAIR) 10 mg tablet Take 1 tablet (10 mg total) by mouth daily 1 Active ezetimibe (ZETIA) 10 mg tablet Take 1 tablet (10 mg total) by mouth daily 1 Active aspirin 81 mg enteric coated tablet Take 1 tablet (81 mg total) by mouth every morning 1 Active lansoprazole (PREVACID) 30 mg capsule Take 1 capsule (30 mg total) by mouth daily 1 Active albuterol HFA (PROVENTIL HFA,VENTOLIN HFA,PROAIR HFA) 90 mcg/actuation inhaler INHALE 1 PUFF BY MOUTH FOUR TIMES DAILY NEEDED FOR SHORTNESS OF BREATH 1 Active citalopram (CeleXA) 20 mg tablet TAKE 1/2 TABLET BY MOUTH DAILY FOR 7 DAYS THEN INCREASE TO 1 TABLET DAILY 1 Active Livalo 2 mg tablet Take 1 tablet (2 mg total) by mouth daily 2 Active rOPINIRole (REQUIP) 0.5 mg tablet Take 1 tablet (0.5 mg total) by mouth 2 (two) times a day Active iron 18 mg tablet Take by mouth Active potassium chloride ER 10 mEq CR tablet Take 1 tablet/capsule (10 mEq total) by mouth daily Active magnesium 30 mg tablet Take 1 tablet (30 mg total) by mouth 2 (two) times a day With zinc and calcium Active cetirizine (ZyrTEC) 10 mg tablet every 12 hours 4 Active famotidine (PEPCID) 20 mg tablet every 12 hours 4 Active fexofenadine (Pamela Allergy) 180 mg tablet daily Active triamcinolone (Nasacort) 55 mcg nasal inhaler daily Active triamcinolone (KENALOG) 0.1 % ointment 1 Application every 12 hours 4 Active leflunomide (ARAVA) 20 mg tabletIndicati ons:Rheumatoid arthritis involving multiple sites with positive rheumatoid factor (HCC) Take 1 tablet (20 mg total) by mouth daily 30 tablet 6 5 Active leflunomide (ARAVA) 20 mg tabletIndicati ons:Rheumatoid arthritis involving multiple sites with positive rheumatoid factor (HCC) Take 1 tablet (20 mg total) by mouth daily 90 tablet 02/26/20 25 Discontin ued(Reord er) Active Problems No known active problems Social History Tobacco Use Types Packs/Day Years Used Date Smoking Tobacco: Former Cigarettes Q uit: 2018 Smokeless Tobacco: Never Tobacco Cessation:Counseling Given: Not Answered Sex and Gender Information Value Date Recorded Sex Assigned at Not on file Legal Sex Male 12:09 PM FACING SLITTER Gender Identity Male 01/13/2021 2:50 PM FACING SLITTER Sexual Orientation Bermeo 01/13/2021 2: 50 PM FACING SLITTER Last Filed Vital Signs Vital Sign Reading Time Taken Comments Blood Pressure 159/89 02/25/2025 11:21 AM CDT Pulse 71 02/25/2025 11:21 AM CDT Temperature 36.8 C (98.3 F) 08/27/2024 4:18 PM CDT Respiratory Rate - - Oxygen Saturation 99% 02/25/2025 11:21 AM CDT Inhaled Oxygen Concentration - - Weight 74.8 kg (165 lb) 02/25/2025 11:21 AM CDT Height 172.8 cm (5' 8.04 ) 02/25/2025 11:21 AM C DT Body Mass Index 25.06 02/25/2025 11:21 AM CDT Plan of Treatment Not on file Procedures Procedure Name Priority Date/Time Associated Diagnosis Comments XR SPINE CERVICAL 2 OR 3 VIEWS Schedule Routine, Read Routine (OP Routine) 02/25/2025 11:46 AM CDT Neck pain ERYTHROCYTE SEDIMENTATION RATE Routine 12/28/2024 7:24 AM FACING SLITTER CBC WITH AUTO DIFFERENTIAL Routine 12/28/2024 7:24 AM FACING SLITTER CRP (ACUTE PHASE) Routine 12/28/2024 7:2 4 AM FACING SLITTER COMPREHENSIVE METABOLIC PANEL Routine 12/28/2024 7:24 AM FACING SLITTER Rheumatoid arthritis involving multiple sites with positive rheumatoid factor (HCC) High risk medication use HEPATITIS C ANTIBODY Routine 02/16/2021 11:10 AM CDT Rheumatoid factor positive Arthralgia, unspecified joint from Last 3 Months or Most Recently Relevant to Health Maintenance Results * XR Spine Cervical 2 or [...] C7-T1. Electronically signed by: Jeremiah Bonilla MD us Devora Gusman BELL MAKER IMG XR PROCEDURES Final Re sult * CBC with auto differential (12/28/2024 7:24 AM FACING SLITTER) WBC 5.3 3.8 - 10.8 Thousand/u L [facility] RBC, POC 4.52 4.20 - 5.80 Million/uL [facility] Hgb 14.0 13.2 - 17.1 g/dL [facility] Hct 42.9 38.5 - 50.0 % [facility] MCV 94.9 80.0 - 100.0 fL [facility] MCH 31.0 27.0 - 33.0 pg [facility] MCHC 32.6 32.0 - 36.0 g/dL [facility] Comment: For adults, a slight decrease in the calculated MCHC value (in the range of 30 to 32 g/dL) is most likely not clinically significant; however, it should be interpreted with caution in correlation with other red cell parameters and the patient's clinical condition. Rdw 12.5 11.0 - 15.0 % [facility] Platelets 185 140 - 400 Thousand/u L [facility] MPV 9.6 7.5 - 12.5 fL [facility] Neutrophils, abs 2,390 1,500 - 7,800 cells/uL [facility] Lymphocytes, abs 1,950 850 - 3,900 cells/uL [facility] Monocyte abs 647 200 - 950 cells/uL [facility] Eosinophils, abs 270 15 - 500 cells/uL [facility] Basophils, abs 42 0 - 200 cells/uL [facility] Neutrophils 45.1 % [facility] Lymphocyte pct 36.8 % [facility] Monocytes 12.2 % [facility] Eosinophils 5.1 % [facility] Basophils 0.8 % [facility] 12/28/2024 7:24 AM FACING SLITTER 12/28/2024 7:25 AM FACING SLITTER us Calin Deleon MD LAB BLOOD ORDERABLES Final Re sult [facility] [address] [address] [place] [address] * Erythrocyte sedimentation rate (12/28/2024 7:24 AM FACING SLITTER) Erythrocyte sedimentation rate 6 < OR = 20 mm/h [facility] 12/28/2024 7:24 AM FACING SLITTER 12/28/2024 7:25 AM FACING SLITTER Calin Deleon MD LAB BLOOD ORDERABLES Final Re sult Performing Organization Address [facility] Co de Phone Number [facility] [address] [place] [address] * CRP (acute phase) (12/28/2024 7:24 AM FACING SLITTER) C-RP <3.0 <8.0 mg/L [facility] 12/28/2024 7:24 AM FACING SLITTER 12/28/2024 7:25 AM FACING SLITTER Calin Deleon MD LAB BLOOD ORDERABLES Final Re sult Performing Organization Address [facility] de Phone Number [facility] [address] [place] [address] * Comprehensive metabolic panel (12/28/2024 7:24 AM FACING SLITTER) Glucose 93 65 - 99 mg/dL [facility] Comment: Fasting reference interval BUN 12 7 - 25 mg/dL [facility] Creatinine 1.08 0.70 - 1.30 mg/dL [facility] eGFR 82 > OR = 60 mL/min/1.7 3m2 [facility] BUN/creat ratio SEE NOTE: 6 - 22 (calc) [facility] Comment: Not Reported: BUN and Creatinine are within reference range. Sodium 138 135 - 146 mmol/L [facility] Potassium, pl 4.6 3.5 - 5.3 mmol/L [facility] Chloride 102 98 - 110 mmol/L [facility] CO2 31 20 - 32 mmol/L [facility] Calcium 9.2 8.6 - 10.3 mg/dL [facility] Protein, sr 6.7 6.1 - 8.1 g/dL [facility] Albumin 4.4 3.6 - 5.1 g/dL [facility] GLOBULIN 2.3 1.9 - 3.7 g/dL (calc) [facility] Alb/glob ratio 1.9 1.0 - 2.5 (calc) [facility] Bilirubin, total 0.4 0.2 - 1.2 mg/dL [facility] Alk phos 56 35 - 144 U/L [facility] AST 22 10 - 35 U/L [facility] ALT (SGPT) 22 9 - 46 U/L [facility] Blood 12/28/2024 7:24 AM FACING SLITTER 12/28/2024 7:25 AM FACING SLITTER Calin Deleon MD LAB BLOOD ORDERABLES Final Re sult [facility] [address] [place] [address] * Hepatitis C antibody (02/16/2021 11:10 AM CDT) Hep C Ab Nonreactive Nonreactive [facility] Comment:Antibodies to HCV no t detected. Does NOT exclude the possibility of recent exposure to HCV. Blood specimen (specimen) 02/16/2021 11:10 AM CDT 02/16/2021 2:20 PM CDT Calin Deleon MD LAB MICROBIOLOGY - GENERAL OR DERABLES Edited Result - Final [facility] Department of Laboratories [place], [place] [id number] from Last 3 Months or Most Recently Relevant to Health Maintenance Insurance [facility] [facility] Care Teams Switchboard Operator Relationship Specialty Start Date End Date David Reilly MD PCP - General Family Medicine 01/06/21
--- OUTSIDE RECORDS SUMMARY | 2025-02-27 00:41 | XMS_ITS | Clinical Summary ---
Author Organization [facility] Address [address] [place] [address] Care Team Providers Care Referral Nurse Name Role Phone David Reilly MD Primary Care Provider [phone] Allergies No known active allergies Medications ALPRAZolam (XANAX) 0.5 mg tablet Active busPIRone (BUSPAR) 15 mg tablet Take 1 tablet (15 mg total) by mouth 2 (two) times a day 1 Active Symbicort 160-4.5 mcg/actuation inhaler INHALE 2 [...] mg total) by mouth daily 90 tablet 5 02/26/20 25 Discontin ued(Reord er) Active Problems No known active problems Encounters Date Type Department Care Team Description 02/26/2025 Telephone [facility] Rheumatology [address] [facility] 2nd Floor [address] [place] [phone] Itz Mayes 02/25/2025 11:42 AM CDT - 02/25/2025 11:59 PM CDT Hospital Encounter [facility] [place] [facility] Medicine [address] [place] [address] Neck pain Discharge Disposition: Discharge to home or self care 02/25/2025 11:20 AM CDT Office Visit [facility] Rheumatology [address] [facility] 2nd Floor [address] [place] [address] Devora Gusman NP Rheumatoid arthritis involving multiple sites with positive rheumatoid factor (HCC) (Primary Dx); High risk medication use; Neck pain from Last 3 Months Surgical History Surgery Date Site/Laterality Comments DISCECTOMY 11/21/1996 - 11/20/1997 CERVICAL FUSION 11/26/2022 Medical History Medical History Date Comments Depression Hyperlipidemia Asthma COPD (chronic obstructive pulmonary disease) (HC C) Emphysema lung (HCC) Family History Medical History Relation Name Comments Diabetes Mother Hypertension Mother Diabetes Sister Relation Name Status Comments Father Alive Mother Alive Sister Alive Social History Tobacco Use Types Packs/Day Years Used Date Smoking Tobacco: Former Cigarettes Q uit: 2018 Smokeless Tobacco: Never Tobacco Cessation:Counseling Given: Not Answered Sex and Gender Information Value Date Recorded Sex Assigned at Not on file Legal Sex Male 12:09 PM POLE FRAMER MACHINE Gender Identity Male 01/13/2021 2:50 PM POLE FRAMER MACHINE Sexual Orientation Bermeo 01/13/2021 2: 50 PM POLE FRAMER MACHINE Obstetrics History Last Filed Vital Signs Vital Sign Reading [...] 02/25/2025 11:21 AM CDT Plan of Treatment Health Maintenance Due Date Last Done Comments Colon Cancer Screening-Colonoscopy 1971 Depression Screening 1971 Prostate Cancer Screening-PSA 1971 DTaP/Tdap/Td Vaccine (1 - Tdap) 1982 Hepatitis B Screening 1989 Regular Well Visit/Exam 18-64 1989 Pneumococcal vaccine <65 (1 of 2 - PCV) 1990 Zoster Vaccine (1 of 2) 2021 Influenza Vaccine (Season Ended) 2025 04/23/20 Hepatitis C Screening Completed 02/16/2021 Procedures Procedure Name Priority Date/Time Associated Diagnosis Comments XR SPINE CERVICAL 2 OR 3 VIEWS Schedule Routine, Read Routine (OP Routine) 02/25/2025 11:46 AM CDT Neck pain ERYTHROCYTE SEDIMENTATION RATE Routine 12/28/2024 7:24 AM POLE FRAMER MACHINE CBC WITH AUTO DIFFERENTIAL Routine 12/28/2024 7:24 AM POLE FRAMER MACHINE CRP (ACUTE PHASE) Routine 12/28/2024 7:2 4 AM POLE FRAMER MACHINE COMPREHENSIVE METABOLIC PANEL Routine 12/28/2024 7:24 AM POLE FRAMER MACHINE Rheumatoid arthritis involving multiple sites with positive [...] by: Jeremiah Bonilla MD us Devora Gusman LAST WAXER IMG XR PROCEDURES Final Re sult * CBC with auto differential (12/28/2024 7:24 AM POLE FRAMER MACHINE) WBC 5.3 3.8 - 10.8 Thousand/u L [...] % [facility] 12/28/2024 7:24 AM POLE FRAMER MACHINE 12/28/2024 7:25 AM POLE FRAMER MACHINE us Calin Deleon MD LAB BLOOD ORDERABLES Final Re sult Performing Organization Address [facility] de Phone Number [facility] [address] [place] [address] * Erythrocyte sedimentation rate (12/28/2024 7:24 AM POLE FRAMER MACHINE) Pathologist [facility] Erythrocyte sedimentation rate 6 < OR = 20 mm/h [facility] 12/28/2024 7:24 AM POLE FRAMER MACHINE 12/28/2024 7:25 AM POLE FRAMER MACHINE Calin Deleon MD LAB BLOOD ORDERABLES Final Re sult Performing Organization Address [facility] Phone Number [facility] [address] [place] [address] * CRP (acute phase) (12/28/2024 7:24 AM POLE FRAMER MACHINE) Pathologist [facility] C-RP <3.0 <8.0 mg/L [facility] 12/28/2024 7:24 AM POLE FRAMER MACHINE 12/28/2024 7:25 AM POLE FRAMER MACHINE Calin Deleon MD LAB BLOOD ORDERABLES Final Re sult Performing Organization Address [facility] Phone Number [facility] [address] [place] [address] * Comprehensive metabolic panel (12/28/2024 7:24 AM POLE FRAMER MACHINE) Glucose 93 65 - 99 mg/dL [facility] [...] [facility] Blood 12/28/2024 7:24 AM POLE FRAMER MACHINE 12/28/2024 7:25 AM POLE FRAMER MACHINE us Calin Deleon MD LAB BLOOD ORDERABLES Final Re sult [facility] [address] [place] [address] * Hepatitis C antibody (02/16/2021 11:10 AM CDT) Hep C Ab Nonreactive Nonreactive [facility] Comment:Antibodies to HCV no t detected. Does NOT exclude the possibility of recent exposure to HCV. Blood specimen (specimen) 02/16/2021 11:10 AM CDT 02/16/2021 2:20 PM CDT us Calin Deleon MD LAB MICROBIOLOGY - GENERAL OR DERABLES Edited Result - Final [facility] [place] [address] from Last 3 Months or Most Recently Relevant to Health Maintenance Insurance [facility] [facility] Care Teams Referral Nurse Relationship Specialty Start Date End Date David Reilly MD PCP - General Family Medicine 01/06/21
[2025-02-27 08:25] VITALS: BP 118/74; PULSE 75; RESP 18; TEMP 36.1; O2SAT 100
[2025-02-27] MEDS: LACTATED RINGERS 1,000 ML 150 ML IV CONT (08:37)
--- NOTE | 2025-02-27 08:49 | P.PNAN_ITS ---
Anes - Initial Pre Proc Eval Procedure: Operation Date: 02/27/25 09:30 Proposed Procedures p Esophagogastroduodenoscopy&Screen Colon - Freddie Moore MD Date/Time: 02/27/25 08:49 Surgeon: Freddie Moore MD Pre Op Diagnosis: Gastro-esophageal reflux disease without esophagit Patient Data Age: 54 Gender: M Height: 1.73 m Weight: 73 kg Last Vital Signs Temp 36.1 C L 02/27/25 08:25 Pulse 75 02/27/25 08:25 Resp 18 02/27/25 08:25 BP 118/74 02/27/25 08:25 Pulse Ox 100 02/27/25 08:25 O2 Del Method Room Air 02/27/25 08:25 Allergies Allergy/AdvReac Type Severity Reaction Status Date / Time Eaezypq-YGS-VvX Reductase AdvReac Intermediate elevated Verified 02/27/25 08:22 Inhibitor (Jxxwjnt-Mcm-Wmc liver Reductase Inhibitor) function Home Medications ?Medication ?Instructions ?Recorded ?Confirmed ?Type leflunomide 20 mg tablet 20 mg PO DAILY 08/18/21 02/27/25 History ezetimibe 10 mg tablet (Zetia) 10 mg PO DAILY #90 tabs 08/22/23 02/27/25 Rx pitavastatin calcium 2 mg tablet 2 mg PO DAILY #90 tabs 09/08/23 02/27/25 Rx (Livalo) nawhmbw-bfbsgdszf-agxi tablet 1 tablet PO DAILY 03/21/24 02/27/25 History ferrous sulfate 325 mg (65 mg 325 mg PO DAILY 03/21/24 02/25/25 History iron) tablet potassium 99 mg tablet 99 mg PO DAILY 03/21/24 02/27/25 History buspirone 15 mg tablet 15 mg PO BID #180 tabs 06/24/24 02/27/25 Rx albuterol sulfate 90 mcg/actuation 1 inh inhalation QID PRN Shortness 11/27/24 02/25/25 Rx aerosol inhaler Of Breath #8.5 grams budesonide-formoterol HFA 160 2 puff inhalation BID #10.2 grams 12/17/24 02/27/25 Rx mcg-4.5 mcg/actuation aerosol inhaler citalopram 20 mg tablet (Celexa) 20 mg PO DAILY #90 tabs 12/24/24 02/27/25 Rx alprazolam 0.5 mg tablet 0.5 mg PO DAILY PRN Anxiety #60 12/26/24 02/25/25 Rx tabs lansoprazole 30 mg capsule,delayed 30 mg PO DAILY #90 caps 12/26/24 02/27/25 Rx release semaglutide (weight loss) 1 mg/0.5 1 mg (0.5 mL) subcut WEEKLY #2 mL 12/31/24 02/25/25 Rx mL subcutaneous pen injector montelukast 10 mg tablet 10 mg PO DAILY #90 tabs 02/11/25 02/27/25 Rx ropinirole 0.5 mg tablet 0.5 mg PO BID #60 tabs 02/11/25 02/27/25 Rx Patient hx anesthesia problems: none Family hx anesthesia problems: none Results Review: All pre-operative results and documents have been reviewed as part of the pre- operative evaluation. [facility] Past Medical History Medical History SOB (shortness of breath) Left knee pain History of stress test COPD (chronic obstructive pulmonary disease) H/O headache Bronchitis Obstructive Sleep Apnea-Hypopnea Syndrome Excessive daytime sleepiness Rheumatoid factor positive Chest pain Hypertriglyceridemia, essential BMI 30.0-30.9,adult SONYA on CPAP Unspecified asthma SONYA (obstructive sleep apnea) Restless leg syndrome Depression Anxiety Hyperlipidemia Asthma Surgical History Surgical History History of laparoscopic cholecystectomy 03/26/24 Hx of cervical spine surgery History of tooth extraction History of discectomy Family History Family History Mother Family history of diabetes mellitus in first degree relative Family history of thyroid disease Diabetes mellitus Hypertension Grandparent Family history of coronary artery disease Father No problems noted. Sibling Diabetes mellitus Ulcerative colitis Unknown Cancer Arthritis Social History Social History Smoking packs per day: 1 Smoking cigarettes per day: 20.0 Years smoked: 30 Smoking pack-years: 30.00 Smoking status: Former smoker Tobacco type: cigarettes Second hand tobacco smoke exposure: Yes Smoking end date: 03/21/19 Additional smoking assessment comments: 1 ppd for 30 yrs, quit 2018 Alcohol intake: current Substance use: never Substance use type: does not use Do You Feel Safe in your Home?: Yes Lack of Transportation: No Lack of Food: Never True Current Housing: I Have Housing Concerned About Future Housing: No Difficulty Paying Gas/Electric Bills: No Difficulty Paying for Meds: No Currently Unemployed: No Education: High School Diploma/GED Difficulty w/ Childcare or Family Care: No Living arrangements: with family Occupation/Education: occupation 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 Gender identity (if verbalized by the patient): Male Spiritual care concerns: No Anes - Eval Final PreProcedure Day of Procedure 02/27/25 08:49 Patient weight: normal Heart: regular rate and rhythm Lungs: decreased breath sounds Airway: Mallampati scale class II Neurological: alert and oriented Last oral intake: >/= 8 hours ASA classification: III Emergent: no Anesthetic plan: proceed Anesthesia type and monitoring: general GIVS and standard monitoring Results Review: All pre-operative results and documents have been reviewed as part of the pre- operative evaluation. Informed Consent: The patient's anesthetic plan and its attendant risks and benefits were discussed with the patient/family/POA. Questions were solicited and answers provided to the satisfaction of the patient/family/POA.
--- NOTE | 2025-02-27 09:56 | PM.IMHP ---
H&P: HPI History of Present Illness Date/Time: 02/27/25 09:56 Chief Complaint: GERD- screening colonoscopy Narrative: This is the patient's first colonoscopy. There are no GI symptoms and there is no family history of colorectal cancer. in addition, the patient had a history of Schatzki ring requiring dilation. Currently he is not having dysphagia and has occasional GERD, however it is controlled with lansoprazole. Review of Systems Review of Systems: All systems reviewed & are unremarkable except as noted in HPI and below PMFSH Past Medical History Medical History SOB (shortness of breath) Left knee pain History of stress test COPD (chronic obstructive pulmonary disease) H/O headache Bronchitis Obstructive Sleep Apnea-Hypopnea Syndrome Excessive daytime sleepiness Rheumatoid factor positive Chest pain Hypertriglyceridemia, essential BMI 30.0-30.9,adult SONYA on CPAP Unspecified asthma SONYA (obstructive sleep apnea) Restless leg syndrome Depression Anxiety Hyperlipidemia Asthma Surgical History Surgical History History of laparoscopic cholecystectomy 03/26/24 Hx of cervical spine surgery History of tooth extraction History of discectomy Family History Family History Mother Family history of diabetes mellitus in first degree relative Family history of thyroid disease Diabetes mellitus Hypertension Grandparent Family history of coronary artery disease Father No problems noted. Sibling Diabetes mellitus Ulcerative colitis Unknown Cancer Arthritis Social History Social History Smoking packs per day: 1 Smoking cigarettes per day: 20.0 Years smoked: 30 Smoking pack-years: 30.00 Smoking status: Former smoker Tobacco type: cigarettes Second hand tobacco smoke exposure: Yes Smoking end date: 03/21/19 Additional smoking assessment comments: 1 ppd for 30 yrs, quit 2018 Alcohol intake: current Substance use: never Substance use type: does not use Do You Feel Safe in your Home?: Yes Lack of Transportation: No Lack of Food: Never True Current Housing: I Have Housing Concerned About Future Housing: No Difficulty Paying Gas/Electric Bills: No Difficulty Paying for Meds: No Currently Unemployed: No Education: High School Diploma/GED Difficulty w/ Childcare or Family Care: No Living arrangements: with family Occupation/Education: occupation 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 Gender identity (if verbalized by the patient): Male Spiritual care concerns: No Meds Home Medications and Allergies Home Medications ?Medication ?Instructions ?Recorded ?Confirmed ?Type leflunomide 20 mg tablet 20 mg PO DAILY 08/18/21 02/27/25 History ezetimibe 10 mg tablet (Zetia) 10 mg PO DAILY #90 tabs 08/22/23 02/27/25 Rx pitavastatin calcium 2 mg tablet 2 mg PO DAILY #90 tabs 09/08/23 02/27/25 Rx (Livalo) ifoqrlh-aghnbuxsj-ikwx tablet 1 tablet PO DAILY 03/21/24 02/27/25 History ferrous sulfate 325 mg (65 mg 325 mg PO DAILY 03/21/24 02/25/25 History iron) tablet potassium 99 mg tablet 99 mg PO DAILY 03/21/24 02/27/25 History buspirone 15 mg tablet 15 mg PO BID #180 tabs 06/24/24 02/27/25 Rx albuterol sulfate 90 mcg/actuation 1 inh inhalation QID PRN Shortness 11/27/24 02/25/25 Rx aerosol inhaler Of Breath #8.5 grams budesonide-formoterol HFA 160 2 puff inhalation BID #10.2 grams 12/17/24 02/27/25 Rx mcg-4.5 mcg/actuation aerosol inhaler citalopram 20 mg tablet (Celexa) 20 mg PO DAILY #90 tabs 12/24/24 02/27/25 Rx alprazolam 0.5 mg tablet 0.5 mg PO DAILY PRN Anxiety #60 12/26/24 02/25/25 Rx tabs lansoprazole 30 mg capsule,delayed 30 mg PO DAILY #90 caps 12/26/24 02/27/25 Rx release semaglutide (weight loss) 1 mg/0.5 1 mg (0.5 mL) subcut WEEKLY #2 mL 12/31/24 02/25/25 Rx mL subcutaneous pen injector montelukast 10 mg tablet 10 mg PO DAILY #90 tabs 02/11/25 02/27/25 Rx ropinirole 0.5 mg tablet 0.5 mg PO BID #60 tabs 02/11/25 02/27/25 Rx Allergies Allergy/AdvReac Type Severity Reaction Status Date / Time Vvbazkm-NLW-BjZ Reductase AdvReac Intermediate elevated Verified 02/27/25 08:22 Inhibitor (Ofpyiui-Shs-Rqp liver Reductase Inhibitor) function Vital Signs Vital Signs - 24 hr 02/27/25 08:25 Temperature 96.9 F L Pulse Rate 75 Respiratory Rate 18 Blood Pressure 118/74 Pulse Oximetry 100 Oxygen Delivery Room Air Exam Const: General: cooperative and healthy appearing Resp: Effort & Inspection: normal respiratory effort and able to speak in complete sentences Auscultation: clear to auscultation bilaterally Cardio: Rate: regular rate Rhythm: regular rhythm GI: Inspection: normal to inspection GI Palp: No No hepatosplenomegaly present Auscultation: normal bowel sounds Rectal Exam: deferred Skin: General skin exam: normal color Psych: Appearance: grossly normal Mental Status: mental status grossly normal Assessment and Plan Assessment and plan (1) Gastro-esophageal reflux disease without esophagitis: Code(s): K21.9 - Gastro-esophageal reflux disease without esophagitis Status: Acute Assessment and Plan: The patient is deemed a good candidate for the procedure. Consent signed. Will proceed. (2) Screening for colon cancer: Code(s): Z12.11 - Encounter for screening for malignant neoplasm of colon Status: Acute
--- NOTE | 2025-02-27 10:14 | SUR.OPER ---
EGD: end 100, COLON: start 101
[2025-02-27] MEDS: SIMETHICONE ORAL SUSPENSION 20 MG/0.3 ML 30 ML BOTTLE 0.6 ML IRRIGATION (10:17)
[2025-02-27 10:29] VITALS: BP 106/69; PULSE 75; RESP 19; O2SAT 100
[2025-02-27 10:39] VITALS: BP 113/79; PULSE 69; RESP 18; O2SAT 100
[2025-02-27 10:49] VITALS: BP 116/81; PULSE 66; RESP 17; O2SAT 100
== END 2025-02-27 11:00 | disposition home or self-care (01) ==
PROVIDERS: PCP Physician Assistant Medical; Referring Provider Physician Assistant Medical; Visit Provider Internal Medicine Gastroenterology
PROC: 0DJ08ZZ Inspection of Upper Intestinal Tract, Via Natural or Artificial Opening Endoscopic (ICD-10-PCS; CPT 45378; principal; 2025-02-27 09:30)
DX: Z12.11 Encounter for screening for malignant neoplasm of colon (principal); K64.8 Other hemorrhoids; K29.50 Unspecified chronic gastritis without bleeding; K21.9 Gastro-esophageal reflux disease without esophagitis; E78.5 Hyperlipidemia, unspecified; J44.9 Chronic obstructive pulmonary disease, unspecified; E78.1 Pure hyperglyceridemia; G25.81 Restless legs syndrome; F32.A Depression, unspecified; F41.9 Anxiety disorder, unspecified; G47.33 Obstructive sleep apnea (adult) (pediatric); Z79.51 Long term (current) use of inhaled steroids; Z79.85 Long-term (current) use of injectable non-insulin antidiabetic drugs; Z99.89 Dependence on other enabling machines and devices; Z98.890 Other specified postprocedural states; Z90.49 Acquired absence of other specified parts of digestive tract; Z98.1 Arthrodesis status; Z87.891 Personal history of nicotine dependence; Z87.19 Personal history of other diseases of the digestive system; Z80.9 Family history of malignant neoplasm, unspecified; Z82.49 Family history of ischemic heart disease and other diseases of the circulatory system
CPT/HCPCS: 43239; 45378; 88305; J2003; J2704; J7120

== ENCOUNTER 2025-04-04 09:54 | Outpatient (CLI) | payer OTHER, SELFPAY ==
--- NOTE | ~2025-04-04 | CT_ITS ---
CT Scan of the Chest without Contrast: Clinical Indication: Lung cancer screening, nicotine dependence Technique: Contiguous sections were acquired throughout the chest without intravenous contrast. Dose reduction technique was used on this scan by utilizing automated exposure control and iterative recon struction technique. The dose-length product (DLP) was 102.08 mGy-cm. COMPARISON: 04/02/2024 Findings: There is no evidence of any significant mediastinal, hilar or axillary lymphadenopathy. The mediastin al soft tissues appear normal. There is no evidence of pleural or pericardial effusion. The lungs are clear. No pulmonary nodules or infiltrates are noted. Images through the upper abdomen reveal no abnormalities. Impression: Lung RADS 1: Negative. 12 month follow-up screening CT advised. Reviewed, dictated and finalized at location . Impression: Lung RADS 1: Negative. 12 month follow-up screening CT advised.
--- OUTSIDE RECORDS SUMMARY | 2025-04-04 10:02 | XMS_ITS | Patient Health Record ---
Author Organization [facility] Address [address] [place] [address] Care Team Providers Care Flight Line Service Attendant Name Role Phone Melba MEJIA, David Primary Care Provider ANA Carter Unavailable [phone] Allergies No Known Allergies Reason For Referral [...] TWICE DAILY for 90 days Active Tiotropium [place] Monohydrate 1.25 MCG/ACT 2 puffs Inhalation Once [...] Status Risk Notes Problem Restless legs syndrome (46222280) Restless legs syndrome (G25.81) Active confirmed Problem Pain co-occurrent and due to varicose veins of bilateral legs ([id number] 9100) Varicose veins of leg with pain, 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) Active confirmed Encounters Encounter Location Date Provider Diagnosis [address] [phone] 12/28/2024 ANA JULIO [address] [address] 12/31/2024 ANA JULIO Plan Of Treatment No Information Insurance Providers Payer Name Payer Address Payer Phone Subscriber Number Group Number Insured Name Patient Relationship to Insured Coverage Start Date Coverage End Date [employer] [address] [place] [phone] [id number] Glen Demarco Self - patient is the insured Medical (General) History Medical History History ICD Code Arthritis Asthma Emphysema COPD Surgical History Surgery Date(Month/Year)
--- OUTSIDE RECORDS SUMMARY | 2025-04-04 10:02 | XMS_ITS | Continuity of Care Document ---
Author Organization [facility] Address [address] [place] [address] Phone Care Team Providers Care Automatic Buffer Name Role Phone Ct White Unavailable Unavailabl [...] Provider Providers Copied on Encounter [facility], [address] [address], [place], [place], [id number], [phone] [facility] No Information Jeanie Fofana. [address], [address], [place], [place], [id number] , [place]. tel: [phone] Office/outpat ient visit,[facility], [address], [place], [place], [id number], [phone] [facility] Professional [facility] [address] Left thumb (chief complaint) Trigger thumb, left thumb Jeanie Fofana. [address], [address], [place], [place], [id number] , [place]. tel: [phone] Family History Family Member Type Diagnosis Age At Onset Mother Problem (finding) Osteoarthritis Mother Problem (finding) Cancer, unknown Sister Problem (finding) Diabetes Mother Problem (finding) Diabetes Immunizations Vaccine Date Status Comments influenza, injectable, quadrivalent, (3 years or older) administered Note: pt refused ; S ource: Source Unspecified Payers Payer name Insurance type Covered constitution party ID Authoriza tihenry(s) Raulito [facility] [id number] Social History Type Description Quantity Date Captured [...] recall a specific injury. 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 He has a [...]
--- OUTSIDE RECORDS SUMMARY | 2025-04-04 10:02 | XMS_ITS ---
Author Organization [facility] [place] ([address]) Address [address] [place] [address] Care Team Providers Care Second Ride Fare Collector Name Role Phone Melba MEJIA, David Primary Care Provider Unavaila ble Dione Mcghee Unavailable [phone] REASON FOR VISIT Refill Medications Medication SIG (Take, Route, Frequency, Duration) Notes Start Date End Date Status Montelukast Sodium 10 MG 1 tablet Orally Once a day for 90 days Active Encounters Encounter Location Date Provider Diagnosis [address] [address] 12/26/2024 Dione Mcgehe Dermatitis, unspec ified L30.9 Assessments Encounter Date Diagnosis (ICD Code) Assessment Notes Treatment Notes Treatment Clinical Notes Section Notes 12/26/2024 Dermatitis, unspecified (ICD-10 - L30.9) Plan Of Treatment Medication Medication Name Sig Start Date Stop Date Notes Montelukast Sodium 10 MG 1 tablet Orally Once a day for 90 days Progress Notes * Glen DEMARCODOB: (54 yo M)Acc No.[id number]:12/26/2024 Patient: Huyen NAVEEDJENNIFERGlen WARREN :1970 A ge:54 Y S ex:Male Address:[address], [place], [address] * Refills Refill Montelukast Sodium Tablet, 10 MG, Orally, 90, 1 tablet, Once a day, 90 days, Refills=0 * true * Date: Generated for Jerod burns/Katt/Hetal on: 0 04/04/2025 10:01 AM CDT
--- OUTSIDE RECORDS SUMMARY | 2025-04-04 10:02 | XMS_ITS | Patient Health Record ---
Author Organization [facility] [employer] [place] ([address]) Address [address] [place] [address] Care Team Providers Care Orthophotography Technician Name Role Phone Melba MEJIA, David Primary Care Provider Unavaila Dione Golden Unavailable [phone] [employer]Migration, Provider Unavailable Unavailab le Allergies No Known Allergies Reason For Referral No Information Medications Medication SIG (Take, Route, Frequency, Duration) Notes Start Date End Date Status Potassium 99 MG 1 tablet Orally Once a day Active Semaglutide 3 MG as directed Orally Active Famotidine 20 MG 1 tablet Orally [...] LEFLUNOMIDE 20 mg 1 tab(s) orally Active Montelukast Sodium 10 MG 1 tablet Orally Once a day for 90 days Active Nasacort [...] Problem Allergic rhinitis caused by pollen (disorder) (65081756) Allergic rhinitis due to pollen (J30.1) Active confirmed Problem Allergic rhinitis (22470441) Other allergic rhinitis (J30.89) Active confirmed Problem Uncomplicated moderate persistent asthma (648438708) Moderate persistent asthma, uncomplicated (J45.40) Active confirmed Problem Allergic rhinitis caused by animal hair and dander (529039530385398) Allergic rhinitis due to animal (cat) (dog) hair and dander (J30.81) Active confirmed Problem Chronic allergic conjunctivitis (46418628) Other chronic allergic conjunctivitis (H10.45) Active confirmed Vital Signs Oximetry 99 % 08/21/2024 Blood pressure diastolic 89 mm Hg 08/21/2024 Height 69 in 08/21/2024 Blood pressure systolic 146 mm Hg 08/21/2024 Weight 182.4 lbs 08/21/2024 BMI 26.93 kg/m2 08/21/2024 Encounters Encounter Location Date Provider Diagnosis [address] [address] 05/05/2024 Provider ZZ-Migration Allergic rhinitis due to pollen J30.1 and Moderate persistent asthma, uncomplicated J45.[address] [address] 08/21/2024 Dione Mcghee Moderate persistent asthma, uncomplicated J45.40 ; Dermatitis, unspecified L30.9 ; Allergic rhinitis due to pollen J30.1 ; Allergic rhinitis due to animal (cat) (dog) hair and dander J30.81 ; Other allergic rhinitis J30.89 and Other chronic allergic conjunctivitis H10.[address] [address] 06/12/2024 [address] [address] 12/26/2024 Dione Mcghee Dermatitis, unspecified L30.[address] [address] 03/25/2025 Dione Litzy Dermatitis, unspecified L30.9 Assessments Encounter Date Diagnosis (ICD Code) Assessment Notes Treatment Notes Treatment Clinical Notes Section Notes 05/05/2024 Allergic rhinitis due to pollen (ICD-10 [...] Wegovy. 12/26/2024 Dermatitis, unspecified (ICD-10 - L30.9) 03/25/2025 Dermatitis, unspecified (ICD-10 - L30.9) 08/21/2024 Allergic [...] antihistamine/mas t cell stabilizer, PRN 09/11/2024 Other 08/21/2024 Other Plan Of Treatment No Information Insurance Providers Payer Name Payer Address Payer Phone Subscriber Number Group Number Insured Name Patient Relationship to Insured Coverage Start Date Coverage End Date [employer] Choice POS II [address] [place] [address] [id number] Demarco Self - patient is the insured 3 Medical (General) History Medical History History ICD Code Moderate persistent asthma, uncomplicate d Hyperlipidemia, unspecified Anxiety disorder, unspecified Surgical History Surgery Date(Month/Year) L5/S1 04/21/1997 Fusion to C4-C7 11/2022 Cholecystectomy 03/2024
--- OUTSIDE RECORDS SUMMARY | 2025-04-04 10:02 | XMS_ITS | Clinical Summary ---
Author Organization [facility] Address [address] [place] [address] Care Team Providers Care Cook Seafood Name Role Phone David Reilly MD Primary Care Provider Allergies No known active allergies Medications ALPRAZolam [...] hours 4 Active leflunomide (ARAVA) 20 mg tabletIndicatio ns:Rheumatoid arthritis involving multiple sites with positive rheumatoid factor (HCC) Take 1 tablet (20 mg total) by mouth daily 30 tablet 6 5 Active Active Problems No known active problems Encounters Date Type Department Care Team Description 02/26/2025 Telephone [facility] [address] [facility] 2nd Floor [address] [place] [address] Itz Mayes 02/25/2025 11:42 AM CDT - 02/25/2025 11:59 PM CDT Hospital Encounter [facility] [address] [place] [address] Neck pain Discharge Disposition: Discharge to home or self care 02/25/2025 11:20 AM CDT Office Visit [facility] [address] [place] [address] 2nd Floor [address] [place] [address] Devora Gusman NP Rheumatoid arthritis involving multiple [...] on file Legal Sex Male 12:09 PM LICENSING AND REGISTRATION DIRECTOR Gender Identity Male 01/13/2021 2:50 PM LICENSING AND REGISTRATION DIRECTOR Sexual Orientation Bermeo 01/13/2021 2: 50 PM LICENSING AND REGISTRATION DIRECTOR Obstetrics History Last Filed Vital Signs Vital [...] 2021 Influenza Vaccine (Season Ended) 2025 04/23/20 24 Hepatitis C Screening Completed 02/16/2021 Procedures Procedure Name Priority Date/Time Associated Diagnosis Comments XR SPINE CERVICAL 2 OR 3 VIEWS Schedule Routine, Read Routine (OP Routine) 02/25/2025 11:46 AM CDT Neck pain HEPATITIS C ANTIBODY Routine 02/16/2021 11:10 AM [...] disc disease at C7-T1. Electronically signed by: Jermeiah Bonilla MD Narrative 02/25/2025 1:21 PM CDT [...] signed by: Jeremiah Bonilla MD Devora Gusman FELLER HAND IMG XR PROCEDURES Final Re sult * Hepatitis C antibody (02/16/2021 11:10 AM CDT) Hep C Ab Nonreactive Nonreactive [facility] Comment:Antibodies to HCV no t detected. Does NOT exclude the possibility of recent exposure to HCV. Blood specimen (specimen) 02/16/2021 11:10 AM CDT 02/16/2021 2:20 PM CDT Calin Deleon MD LAB MICROBIOLOGY - GENERAL OR DERABLES Edited Result - Final [facility] [place] [address] from Last 3 Months or Most Recently Relevant to Health Maintenance Insurance [facility] Care Teams Cook Seafood Relationship Specialty Start Date End Date David Reilly MD PCP - General Family Medicine 01/06/21
--- OUTSIDE RECORDS SUMMARY | 2025-04-04 10:02 | XMS_ITS ---
Author Organization [facility] ([address]) Address [address] [place] [address] Care Team Providers Care Systems Support Engineer Name Role Phone Melba MEJIA, David Primary Care Provider Unavaila ble Dione Mcghee Unavailable [phone] REASON FOR VISIT ARC follow-up Encounters Encounter Location Date Provider Diagnosis [facility] [address] [place] [address] 04/02/2025 Dione Mcghee Plan Of Treatment No Information Progress Notes * Glen DEMARCODOB: (54 yo M)Acc No.[id number]:04/02/2025 Progress Notes Patient: Glen ZARAGOZA Provider: Tino Mcghee MD :1970 A ge:54 Y S ex:Male Date:04/02/2025 Address:[address] [facility] Pcp:David Reilly MD Subjective: * Chief Complaints: * 1 . ARC follow-up. * Medical History: Objective: * Vitals: Assessment: Plan: * Treatment: * Billing Information: * Visit Code: * Procedure Codes: * Electronic signature of Leesa Mcghee MD on 04/04/2025 at 10:02 AM CDT Sign off status: Pending * Provider: Tino Mcghee MD Date: 0 04/02/2025 Generated for Jerod burns/Katt/Hetal on: 0 04/04/2025 10:02 AM CDT
--- OUTSIDE RECORDS SUMMARY | 2025-04-04 10:02 | XMS_ITS | Referral Summary ---
Author Organization [facility] Address [address] [place] [address] Care Team Providers Care Chief Clerk Shelter Name Role Phone David Reilly MD Primary Care Provider [phone] Encounters Date Type Department Care Team Description 02/26/2025 Telephone [facility] [address] [facility] 2nd Floor [address] [place] [address] Itz Mayes 02/25/2025 11:42 AM CDT - 02/25/2025 11:59 PM CDT Hospital Encounter [facility] at [facility] [address] [place] [address] Neck pain Discharge Disposition: Discharge to home or self care 02/25/2025 11:20 AM CDT Office Visit [facility] [address] [facility] 2nd Floor [address] [place] [address] Devora Gusman NP Rheumatoid arthritis involving multiple [...] Active Active Problems No known active problems Social History Tobacco Use Types Packs/Day Years Used Date Smoking Tobacco: Former Cigarettes Q uit: 2018 Smokeless Tobacco: Never Tobacco Cessation:Counseling Given: Not Answered Sex and Gender Information Value Date Recorded Sex Assigned at Not on file Legal Sex Male 12:09 PM SERVICE DOG TRAINER Gender Identity Male 01/13/2021 2:50 PM SERVICE DOG TRAINER Sexual Orientation Bermeo 01/13/2021 2: 50 PM SERVICE DOG TRAINER Last Filed Vital Signs Vital Sign Reading [...] disc disease at C7-T1. Electronically signed by: MD Marianela Landeros 02/25/2025 1:21 PM CDT EXAMINATION: XR SPINE [...] signed by: Jeremiah Bonilla MD Devora Gusman TRADE MARKER IMG XR PROCEDURES Final Re sult * Hepatitis C antibody (02/16/2021 11:10 AM CDT) Hep C Ab Nonreactive Nonreactive [facility] Comment:Antibodies to HCV no t detected. Does NOT exclude the possibility of recent exposure to HCV. Blood specimen (specimen) 02/16/2021 11:10 AM CDT 02/16/2021 2:20 PM CDT Calin Deleon MD LAB MICROBIOLOGY - GENERAL OR DERABLES Edited Result - Final [facility] Department [place] [address] from Last 3 Months or Most Recently Relevant to Health Maintenance Insurance [facility]NA [facility] Care Teams Chief Clerk Shelter Relationship Specialty Start Date End Date David Reilly MD PCP - General Family Medicine 01/06/21
--- OUTSIDE RECORDS SUMMARY | 2025-04-04 10:02 | XMS_ITS ---
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 Name Role Phone Melba MEJIA, David Primary Care Provider Unavaila ble Dione Mcghee Unavailable [phone] REASON FOR VISIT Refills Medications Medication SIG (Take, Route, Frequency, Duration) Notes Start Date End Date Status Montelukast Sodium 10 MG 1 tablet Orally Once a day for 90 days Active Encounters Encounter Location Date Provider Diagnosis [address] [address] 03/25/2025 Dinoe Mcghee Dermatitis, unspec ified L30.9 Assessments Encounter Date Diagnosis (ICD Code) Assessment Notes Treatment Notes Treatment Clinical Notes Section Notes 03/25/2025 Dermatitis, unspecified (ICD-10 - L30.9) Plan Of Treatment Medication Medication Name Sig Start Date Stop Date Notes Montelukast Sodium 10 MG 1 tablet Orally Once a day for 90 days Progress Notes * Glen DEMARCODOB: (54 yo M)Acc No.[id number]:03/25/2025 Patient: Huyen NAVEEDMARKIEGlen :1970 A ge:54 Y S ex:Male Address:[address] [place], [address] * Refills Refill Montelukast Sodium Tablet, 10 MG, Orally, 90, 1 tablet, Once a day, 90 days, Refills=0 * true * Date: Generated for Jerod burns/Katt/Hetal on: 0 04/04/2025 10:02 AM CDT
== END 2025-04-04 09:55 | disposition home or self-care (01) ==
PROVIDERS: PCP Family Medicine; Visit Provider Physician Assistant
DX: Z12.2 Encounter for screening for malignant neoplasm of respiratory organs (principal); Z87.891 Personal history of nicotine dependence
CPT/HCPCS: 71271